=== PATIENT | male | born 1995 | race Caucasian/White ===

== ENCOUNTER 2024-05-20 15:54 | Inpatient (IN) | payer SELFPAY ==
[2024-05-20 16:40] VITALS: BP 141/91; PULSE 70; RESP 16; TEMP 37.4; O2SAT 98
[2024-05-20 16:42] VITALS: BMI 18.6
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
[2024-05-20] MEDS: nicotine 2 mg Gum BUCCAL (18:17)
[2024-05-20 19:42] VITALS: BP 131/92; PULSE 77; RESP 18; TEMP 36.7; O2SAT 100
[2024-05-20] MEDS: ibuprofen 600 mg Tablet PO (22:02)
[2024-05-20] MEDS: trazodone 50 mg Tablet PO (22:03)
--- NOTE | 2024-05-21 06:31 | PC.NURSE ---
pt refused vitals pts resp are 16
--- NOTE | 2024-05-21 10:26 | PC.NURSE ---
PT SPOKE TO THIS RN AT LENGTH ABOUT MANY THINGS REGARDING MY RIGHTS, MY CHRISTIAN, AND WHAT DO YOU BELIEVE. PT SPEECH IS EXCESSIVE, ANIMATED AND RAPID. PT MAKES MULTIPLE REQUESTS AND DEMANDS TO SEE HIS PHONE BUT THEN STATES HE HAS NO CONTACTS IN HIS PHONE AND WILL NEED TO RESEARCH THE NUMBERS ON FACEBOOK, TWITTER, [employer]. PT WAS INFORMED HE CAN NOT GET ON [employer] SITES BUT HE CAN GET ON HIS PHONE AND GET SOME PHONE NUMBERS. PT CONTINUES TO STATE HE HAS TO RESEARCH THE NUMBERS. PT DENIES SI/HI AND AVH AT THIS TIME. RATES ANXIETY 05/16 AND DEPRESSION 02/13. PT WAS OFFERED MEDICATION TO DECREASE ANXIETY BUT PT REFUSES AND GOES INTO A [facility] ON [address] AND I REALLY NEED TO GET THERE BUT I'M HERE BUT NOT REALLY HERE. PT PERSEVERATES TO ONE SUBJECT TO THE NEXT RAPIDLY AND CAN NOT STAY ON POINT.PT REFUSED TO EAT BREAKFAST AND REPORTS HE HAS NOT EATEN FOR FIVE DAYS AND HE IS GOING TO CONTINUE TO REFUSE ALL MEALS UNTIL THEY LET ME OUT OF HERE. PT WAS EDUCATED THAT IF THE DOES THAT HE WOULD BE SENT TO A MEDICAL FLOOR IF HIS HEALTH DECLINES AND ONCE HE RECOVERS WILL COME BACK TO THE PSYCHIATRIC UNIT. PT THEN STATED WELL THAT SUCKS THEN. I WAS HOPING THEY WOULD LET ME OUT OF HERE. ALL QUESTIONS ANSWERED AND SUPPORT VOICED.
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
[2024-05-21] MEDS: OLANZapine 5 mg ODT PO (12:53)
[2024-05-21 13:41] VITALS: BP 137/88; PULSE 80; RESP 16; TEMP 36.4; O2SAT 98
--- NOTE | 2024-05-21 15:19 | PC.NURSE ---
PT SPOKE WITH NURSE ABOUT C/O MATTED HAIR. PT STATED THAT HE HAD BEEN TRYING TO GET THE MATTES OUT OF HIS HAIR FOR DAYS. THIS NURSE OFFERED TO ASSIST PT IN DE-TANGLING HIS HAIR. PT ACCEPTED THIS OFFER. THIS NURSE ALERTED OTHER STAFF MEMBER TO MY WHERE ABOUT AND OBTAINED THE NECESSARY SUPPLIES. THIS NURSE SPENT ROUGHLY AN HOUR DE-TANGLING PT HAIR. PT HAIR WAD SEVERELY MATTED AND HAD DEBRIS OF UNKNOWN ORIGIN THROUGHOUT THE MATTES. DURING THIS PROCESS THIS NURSE CONVINCE PT TO ALLOW THIS NURSE TO UTILIZE A NO RINSE SHOWER CAP TO PROVIDE SOME PERSONAL HYGIENE PT IS CURRENTLY REFUSING A SHOWER. THIS NURSE APPLIED NO RINSE SHOWER CAP AND MASSAGE THE CAP THOROUGHLY INTO PT SCALP. AFTER THIS WAS DONE THIS NURSE BRUSHED THROUGH PT HAIR AGAIN TO ENSURE THERE WERE NO FURTHER KNOTS. PT APPEAR APPRECIATIVE AND RELIEVED AFTER PROCESS WAS COMPLETED. PT CURRENT NEEDS ARE MET AT THIS TIME.
[2024-05-21 20:13] VITALS: RESP 18
--- NOTE | 2024-05-21 20:13 | PC.NURSE ---
pt refused vitals resp are at 18
[2024-05-21 21:45] VITALS: BP 123/84; PULSE 79; RESP 18; TEMP 37.4; O2SAT 93
[2024-05-22 06:00] VITALS: RESP 16
--- NOTE | 2024-05-22 09:42 | PC.NURSE ---
PT IN DAY ROOM, CONTINUES TO RAMBLE EXCESSIVELY AND ANIMATED WITH SPEECH. DENIES SI/HI AND AVH AT THIS TIME. PT IS OBSERVED TO BE SOMATIC IN NATURE AND MAKES MULTIPLE COMPLAINTS ABOUT TAKING ANTI-DEPRESSANTS AND ANTI-PSYCHOTIC PT STATES I AM ALLERGIC TO ALL THAT STUFF, IT ALL MAKES ME NUMB AND THEN I HAVE EMOTIONS AND I NEVER HAVE THAT. PT WAS EDUCATED THAT NO WHERE IN HIS MEDICAL RECORD DO WE HAVE ANY INFORMATION STATING HE IS ALLERGIC TO ANYTHING. PT IS NOTED TO BE INTRUSIVE, IMPULSIVE AND RESISTIVE TO CARES AND TAKING MEDICATIONS. PT STATES THERE IS NOTHING WRONG WITH ME AND I DON'T NEED TO BE HERE. ALL QUESTIONS ANSWERED AND SUPPORT VOICED. DENIES PAIN.
--- NOTE | 2024-05-22 11:13 | PC.NURSE ---
Patient's father, Augusto phone number [phone].
--- NOTE | 2024-05-22 13:54 | W.PM.NPUPNS ---
Subjective NPU Subjective: Patient presented today reporting that he feels like he is doing fine and does not need medication. He continues to display limited insight and denying need for any interventions. He has no explanation for why situations have and are going the way they go. We discussed the treatment team's belief that medication is probably one of his only options to get his mental health under control. We discussed reviewing medications again in the morning in hopes that he will make changes. Mental Status Exam MSE Comments: This is an underweight white male, in hospital scrubs, with limited grooming, and intense eye contact looking fairly disheveled. No abnormal movements except for mild to moderate psychomotor agitation. Somewhat tense cooperative with exam and significant distress. Speech was slightly decreased rate and volume. Mood described as okay; affect slightly agitated. Thought process, linear. Thought content: patient denied any suicidal or homicidal ideation, there were no delusions reported but paranoia and some bizarre and possibly persecutory delusions noted, patient denied any auditory or visual hallucinations but appeared at times to be attending to internal stimuli. The patient denied experiencing suicidal ideation or thoughts of violence towards others. He reported feeling anxious but denied feelings of paranoia or hallucinations. He did express concerns about his declining memory and cognitive abilities, particularly when playing chess. The patient also reported experiencing flashes during the day but denied having nightmares or flashbacks. Attention, concentration, and memory appear limited but were not formally tested. He is alert and oriented to person. Insight and judgment and impulse control are impaired. Vitals/I&O/Wt Last Vital Signs Temp 99.3 F 05/21/24 21:45 Pulse 79 05/21/24 21:45 Resp 16 05/22/24 06:00 BP 123/84 05/21/24 21:45 Pulse Ox 93 05/21/24 21:45 O2 Del Method Room Air 05/20/24 16:42 Weight last 48 hrs Weight 52.163 kg Involuntary Hold Information 96 Hour Hold: 96 Hour Involuntary Admission: Yes 96 Hour Hold Ending Date: 05/26/24 96 Hour Hold Ending Time: 15:50 Attestations NPU Medical Necessity Statement*: Inpatient hospitalization is medically necessary and the clinically appropriate intervention, at this time. We will monitor medications and make changes as indicated. Likely length of stay is 7-10 days. Coding Level of Care Code Acute Code for [facility]
[2024-05-22 14:00] VITALS: BP 132/81; PULSE 79; RESP 16; TEMP 36.8; O2SAT 100
[2024-05-22] MEDS: nicotine 2 mg Gum BUCCAL (14:04)
--- NOTE | 2024-05-22 17:15 | PC.NURSE ---
PT CAME TO NURSES STATION HOLDING A SCREW AND GAVE IT TO THE RN. PT STATED COME HERE I GOTTA SHOW YOU THIS. WHEN BOTH RN'S ARRIVED TO ROOM THE MIRROR WAS OBSERVED TO BE HANGING PARTLY OFF THE WALL AND TOILET PAPER WAS OBSERVED ROLLED UP INTO THE SCREW HOLES THAT WERE MISSING (4 SCREWS FROM MIRROR HAD TOILET PAPER SHOVED IN SCREW HOLES TO DISGUISE THAT THERE WERE SCREWS MISSING ) PT THEN SHOWED RN THERE WAS A SMALL HOLE IN THE WALL ABOVE PT BED. PT STATED THAT'S WHERE I GOT THE SCREW FROM AND SOMEONE CAN HANG THEMSELVES WITH IT. THE SCREW WAS RANDOMLY PLACED IN THE MIDDLE OF THE WALL IT APPEARED AND HAD BEEN STRIPPED OUT. PT WAS ASSURED THAT THE SMALL SCREW COULD NOT SUPPORT AN ADULTS WEIGHT TO HANG THEMSELVES. PT LAUGHED AND MADE SURE TWO OTHER PTS WERE AWARE OF WHAT HE WAS DOING. ALL ROOMS ON [facility] WERE SEARCHED THROUGH BY STAFF TO FIND SCREWS. SECURITY WAS NOTIFIED BUT UNABLE TO STANDBY DUE TO ANOTHER EMERGENT NEED. THERE WERE NO SCREWS FOUND IN ANY ROOMS. TWO ENDS OF THE FLEXI-PENS WERE OBSERVED AND REMOVED. ALL FLEXI-PENS WERE REMOVED TO BEHIND THE NURSES STATION ON THE [facility]. PT THEN CAME AND GOT THIS RN A SECOND TIME AND TOOK ME TO HIS BATHROOM IN HIS ROOM AND SHOWED STAFF THAT THE HANDI-CAP BAR BY THE TOILET ALSO HAD A SCREW MISSING. THIS RN REMOVED THE ENTIRE MIRROR OFF THE WALL AND TOOK BEHIND NURSES STATION WITH ALL SCREWS AND SHEETROCK HANGERS. HVAC DESIGN MECHANICAL ENGINEER WAS NOTIFIED, SECURITY SYSTEMS MANAGER WAS ALSO NOTIFIED AND DR. BRANDT. PT WAS LAUGHING AND CARRYING ON WITH TWO OTHER PTS ON THE UNIT AND ASKING THE STAFF ARE YOU MAD ARE YOU MAD? THEN LAUGHING. PT WAS INFORMED NO ONE IS MAD BUT ENSURING EVERYONE'S SAFETY IS PRIORITY. SUPPORT VOICED. A FEW MINUTES LATER PT TOOK THIS RN INTO THE DAY ROOM AND SHOWED STAFF THAT THE DOORS ABOVE THE SINK WERE OPENED AND PART OF THE LOCK WAS MISSING ON ONE OF THE DOORS. HVAC DESIGN MECHANICAL ENGINEER WAS NOTIFIED AGAIN. THIS RN ATTEMPTED TO FIND EASON TO LOCK DOORS BUT UNABLE TO LOCATE. AFTER EXAMINATION OF LOCK IT WAS CONCLUDED THAT THE EASON WOULD NOT WORK ANYWAY DUE TO THE LOCK APPEARING TO BE MISSING. PT BEGAN POINTING OUT PLACES IN THE CABINET WHERE HE THOUGHT MORE SCREWS WERE MISSING. PT WAS ASSURED THERE WERE NO SCREWS THERE AND ALL IS WELL.
[2024-05-22] MEDS: OLANZapine 5 mg ODT PO (17:20)
--- NOTE | 2024-05-22 18:47 | PC.NURSE ---
Pt approached nursing station asking for the medication he took last night that helped stimulate his appetite, pt was given Zydis 5mg as ordered for increased anxiety.
[2024-05-22 21:29] VITALS: BP 144/83; PULSE 81; RESP 18; TEMP 37.3; O2SAT 98
[2024-05-23 06:00] VITALS: BP 96/61; PULSE 69; RESP 16; O2SAT 99
--- NOTE | 2024-05-23 09:30 | PC.NURSE ---
STANDING IN [place] SPEAKING WITH THIS RN. PT IS NOTED TO HAVE RAPID MOOD SWINGS THIS EARLY AM. SPEECH IS RAPID, EXCESSIVE AND ANIMATED. PT PERSERVERATES TO ONE SUBJECT TO THE NEXT RAPIDLY. PT WANTS TO KNOW HOW I GET OUT OF HERE, DO I JUST TAKE THE MEDS. PT WAS EDUCATED THAT HIM AND DR. BRANDT CAN DISCUSS MEDICATION OPTIONS AND TRY WHICH ONE THAT IS SUITABLE FOR HIS DIAGNOSIS. PT STATES I GUESS I WILL TAKE PROZAC SO JUST GIVE ME THAT. PT WAS AGIAN EDUCATED THAT THIS RN DOES NOT ORDER THE MEDICATIONS OR DECIDE WHAT HE WILL TAKE IT WILL BE DR. BRANDT AND HE NEEDS TO DISCUSS THAT WITH HIM. DENIES PAIN. DENIES SI/HIU AND AVH AT THIS TIME. RATES ANXIETY /10 AND DEPRESSION /10. DECLINES PRN ANXIETY MEDICATIONS AT THIS TIME PT STATES GOAL FOR THE DAY IS TO FIGURE OUT WHAT MEDS TO TAKE SO I CAN LEAVE. ALL QUESTIONS ANSWERED AND SUPPORT VOICED.
[2024-05-23 14:00] VITALS: BP 118/75; PULSE 71; RESP 17; TEMP 36.7; O2SAT 100
--- NOTE | 2024-05-23 14:17 | W.PM.NPUPNS ---
Subjective NPU Subjective: Patient presented today reporting that he is doing fine. He had another lengthy conversation as he denied that any symptoms that have been identified could be related to a psychotic illness. We discussed the current treatment plan which would involve filing for a 21-day hold given his continued symptoms and no improvement and no treatment. We discussed the risks, benefits and alternatives of Invega and he understood and agreed to proceed as is documented in his note. Mental Status Exam MSE Comments: This is an underweight white male, in hospital scrubs, with limited grooming, and intense eye contact looking fairly disheveled. No abnormal movements except for mild to moderate psychomotor agitation. Somewhat tense cooperative with exam and significant distress. Speech was slightly decreased rate and volume. Mood described as okay; affect slightly agitated. Thought process, linear. Thought content: patient denied any suicidal or homicidal ideation, there were no delusions reported but paranoia and some bizarre and possibly persecutory delusions noted, patient denied any auditory or visual hallucinations but appeared at times to be attending to internal stimuli. The patient denied experiencing suicidal ideation or thoughts of violence towards others. He reported feeling anxious but denied feelings of paranoia or hallucinations. He did express concerns about his declining memory and cognitive abilities, particularly when playing chess. The patient also reported experiencing flashes during the day but denied having nightmares or flashbacks. Attention, concentration, and memory appear limited but were not formally tested. He is alert and oriented to person. Insight and judgment and impulse control are impaired. Vitals/I&O/Wt Last Vital Signs Temp 99.1 F 05/22/24 21:29 Pulse 69 05/23/24 06:00 Resp 16 05/23/24 06:00 BP 96/61 05/23/24 06:00 Pulse Ox 99 05/23/24 06:00 O2 Del Method Room Air 05/23/24 06:00 A&P Assessment and plan (1) History of schizoaffective disorder: (2) Psychosis: (3) Cannabis use disorder: Plan This is a 28-year-old white male unknown to [facility] inpatient or outpatient who presents with kyara psychosis apparently off medication and a poor historian.The patient appears to have a complex psychiatric history with dissatisfaction towards previous treatments. He has reported an increase in anxiety and tobacco use, as well as concerns about declining cognitive abilities. There is also a history of substance use including cannabis and methamphetamines. 1.? Initiate Invega 6 mg p.o. daily. 2.? Encourage individual, group, and milieu therapy. 3.? Continue q-15 minute checks for safety. 4.? Encourage sober living treatment, after discharge, at the highest level of care, to which he is willing to commit. 5. Get collateral information. 6. Evaluate for safety given 96-hour hold. Involuntary Hold Information 96 Hour Hold: 96 Hour Involuntary Admission: Yes 96 Hour Hold Ending Date: 05/26/24 96 Hour Hold Ending Time: 15:50 Attestations NPU Medical Necessity Statement*: Inpatient hospitalization is medically necessary and the clinically appropriate intervention, at this time. We will monitor medications and make changes as indicated. Likely length of stay is 7-10 days. Coding Level of Care Code Acute Code for g Fwd Diagnoses History of schizoaffective disorder Z86.59 Psychosis F29 Cannabis use disorder F12.90
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
[2024-05-23 21:40] VITALS: BP 154/91; PULSE 72; RESP 18; TEMP 36.6; O2SAT 99
[2024-05-24 06:00] VITALS: BP 112/68; PULSE 68; RESP 16; TEMP 36.7; O2SAT 96
--- NOTE | 2024-05-24 13:51 | P.NPUPN_ITS ---
Subjective NPU Subjective: Patient presented today reporting that he is feeling okay. After previously agreeing to taking the Invega he refused the Invega and agreed to take Abilify. We discussed the risks, benefits and alternatives to Abilify and he understood and agreed to proceed as is documented in this note. Continue to focus on the need for discharge and desire for discharge and expressed confusion as to why he was here. We discussed some of the clearly delusional content that he presents with he double down on some of those points as realities. Mental Status Exam MSE Comments: This is an underweight white male, in hospital scrubs, with limited grooming, and less intense eye contact looking less disheveled. No abnormal movements except for mild psychomotor agitation. Somewhat tense cooperative with exam and significant distress. Speech was slightly decreased rate and volume. Mood described as okay; affect slightly agitated. Thought process, linear. Thought content: patient denied any suicidal or homicidal ideation, there were no delusions reported but paranoia and some bizarre and possibly persecutory delusions noted, patient denied any auditory or visual hallucinations but appeared at times to be attending to internal stimuli. The patient denied experiencing suicidal ideation or thoughts of violence towards others. He reported feeling anxious but denied feelings of paranoia or hallucinations. He did express concerns about his declining memory and cognitive abilities, particularly when playing chess. The patient also reported experiencing flashes during the day but denied having nightmares or flashbacks. Attention, concentration, and memory appear limited but were not formally tested. He is alert and oriented to person. Insight and judgment and impulse control are impaired. Vitals/I&O/Wt Last Vital Signs Temp 98.1 F 05/24/24 06:00 Pulse 68 05/24/24 06:00 Resp 16 05/24/24 06:00 BP 112/68 05/24/24 06:00 Pulse Ox 96 05/24/24 06:00 O2 Del Method Room Air 05/24/24 06:00 Weight last 48 hrs Weight 56.812 kg A&P Assessment and plan (1) History of schizoaffective disorder: (2) Psychosis: (3) Cannabis use disorder: Plan This is a 28-year-old white male unknown to [facility] inpatient or outpatient who presents with kyara psychosis apparently off medication and a poor historian.The patient appears to have a complex psychiatric history with dissatisfaction towards previous treatments. He has reported an increase in anxiety and tobacco use, as well as concerns about declining cognitive abilities. There is also a history of substance use including cannabis and methamphetamines. 1.? Initiated Abilify 10 mg p.o. daily and will titrate to effect. 2.? Encourage individual, group, and milieu therapy. 3.? Continue q-15 minute checks for safety. 4.? Encourage sober living treatment, after discharge, at the highest level of care, to which he is willing to commit. 5. Get collateral information. 6. Evaluate for safety given 96-hour hold. Involuntary Hold Information 96 Hour Hold: 96 Hour Involuntary Admission: Yes 96 Hour Hold Ending Date: 05/26/24 96 Hour Hold Ending Time: 15:50 Attestations NPU Medical Necessity Statement*: Inpatient hospitalization is medically necessary and the clinically appropriate intervention, at this time. We will monitor medications and make changes as indicated. Likely length of stay is 7-10 days. Coding Level of Care Code Acute Code for [facility] Fwd Diagnoses History of schizoaffective disorder Z86.59 Psychosis F29 Cannabis use disorder F12.90
[2024-05-24] MEDS: ARIPiprazole 10 mg Tablet PO (13:54)
[2024-05-24 14:00] VITALS: BP 122/79; PULSE 73; RESP 16; O2SAT 99
[2024-05-24] MEDS: acetaminophen 325 mg Tablet 650 MG PO (14:13)
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
[2024-05-24 21:39] VITALS: BP 143/93; PULSE 83; RESP 18; TEMP 36.2; O2SAT 95
[2024-05-25 06:00] VITALS: BP 125/80; PULSE 102; RESP 17; O2SAT 97
[2024-05-25] MEDS: nicotine 2 mg Gum BUCCAL (07:48)
[2024-05-25] MEDS: ARIPiprazole 10 mg Tablet PO (08:42)
[2024-05-25] MEDS: ibuprofen 600 mg Tablet PO (08:54)
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
[2024-05-25] MEDS: calcium carbonate 500 mg Chew Tablet 1000 MG PO ×3 (10:38→18:46)
[2024-05-25 14:00] VITALS: BP 134/80; PULSE 95; RESP 17; TEMP 36.8; O2SAT 97
[2024-05-25] MEDS: acetaminophen 325 mg Tablet 650 MG PO (14:00)
[2024-05-25] MEDS: pantoprazole DR 40 mg Tablet PO (16:24)
[2024-05-25 19:43] VITALS: BP 130/89; PULSE 89; RESP 18; TEMP 37.2; O2SAT 99
--- NOTE | 2024-05-25 20:40 | W.PM.NPUPNS ---
Subjective NPU Subjective: Patient presented today reporting that he is doing okay. We discussed the likelihood of a 21-day hold being filed. He continues to express having no understanding of why we think he might be psychotic. He continues to try to negotiate for a quicker release but wants to avoid medication. Mental Status Exam MSE Comments: This is an underweight white male, in hospital scrubs, with limited grooming, and less intense eye contact looking less disheveled. No abnormal movements except for mild psychomotor agitation. Somewhat tense cooperative with exam and significant distress. Speech was slightly decreased rate and volume. Mood described as okay; affect slightly agitated. Thought process, linear. Thought content: patient denied any suicidal or homicidal ideation, there were no delusions reported but paranoia and some bizarre and possibly persecutory delusions noted, patient denied any auditory or visual hallucinations but appeared at times to be attending to internal stimuli. The patient denied experiencing suicidal ideation or thoughts of violence towards others. He reported feeling anxious but denied feelings of paranoia or hallucinations. He did express concerns about his declining memory and cognitive abilities, particularly when playing chess. The patient also reported experiencing flashes during the day but denied having nightmares or flashbacks. Attention, concentration, and memory appear limited but were not formally tested. He is alert and oriented to person. Insight and judgment and impulse control are impaired. Vitals/I&O/Wt Last Vital Signs Temp 98.9 F 05/25/24 19:43 Pulse 89 05/25/24 19:43 Resp 18 05/25/24 19:43 BP 130/89 05/25/24 19:43 Pulse Ox 99 05/25/24 19:43 O2 Del Method Room Air 05/25/24 06:00 Weight last 48 hrs Weight 56.812 kg A&P Assessment and plan (1) History of schizoaffective disorder: (2) Psychosis: (3) Cannabis use disorder: Plan This is a 28-year-old white male unknown to [facility] inpatient or outpatient who presents with kyara psychosis apparently off medication and a poor historian.The patient appears to have a complex psychiatric history with dissatisfaction towards previous treatments. He has reported an increase in anxiety and tobacco use, as well as concerns about declining cognitive abilities. There is also a history of substance use including cannabis and methamphetamines. 1.? Initiated Abilify 10 mg p.o. daily and will titrate to effect. Possibly increase to 15 mg tomorrow. 2.? Encourage individual, group, and milieu therapy. 3.? Continue q-15 minute checks for safety. 4.? Encourage sober living treatment, after discharge, at the highest level of care, to which he is willing to commit. 5. Get collateral information. 6. Evaluate for safety given 96-hour hold. Involuntary Hold Information 96 Hour Hold: 96 Hour Involuntary Admission: Yes 96 Hour Hold Ending Date: 05/26/24 96 Hour Hold Ending Time: 15:50 Attestations NPU Medical Necessity Statement*: Inpatient hospitalization is medically necessary and the clinically appropriate intervention, at this time. We will monitor medications and make changes as indicated. Likely length of stay is 6-9 days. Coding Level of Care Code Acute Code for Chg Fwd Diagnoses History of schizoaffective disorder Z86.59 Psychosis F29 Cannabis use disorder F12.90
[2024-05-26 06:00] VITALS: BP 119/82; PULSE 86; RESP 18; TEMP 36.7; O2SAT 98
[2024-05-26] MEDS: acetaminophen 325 mg Tablet 650 MG PO (07:15)
[2024-05-26] MEDS: pantoprazole DR 40 mg Tablet PO (07:40)
[2024-05-26] MEDS: ARIPiprazole 10 mg Tablet PO (08:34)
[2024-05-26] MEDS: calcium carbonate 500 mg Chew Tablet 1000 MG PO ×3 (09:49→20:31)
[2024-05-26 14:00] VITALS: BP 110/72; PULSE 115; RESP 20; TEMP 36.9; O2SAT 98
--- NOTE | 2024-05-26 15:56 | PC.NURSE ---
Patient was served papers that he was to have court for a 21 day hold tomorrow. Patient was calm and cooperative. He did ask staff what he should do in order to make his stay as short as possible here. He was told if he remained compliant with medication and worked towards bettering his mental health that it would be in his best interests. Patient agreed and was very friendly towards staff.
[2024-05-26 20:05] VITALS: BP 119/74; PULSE 90; RESP 18; TEMP 36.8; O2SAT 100
[2024-05-26] MEDS: trazodone 50 mg Tablet PO (20:24)
--- NOTE | 2024-05-26 21:43 | W.PM.NPUPNS ---
Subjective NPU Subjective: Patient presented today reporting that he is doing okay. We discussed the process of him being discharged and the importance of him maintaining the medication as prescribed. He continued to endorse delusional content only discussed the 21-day hold process. He agreed he would continue to take the medication. He denied any side effects to the medication at this point. We discussed the risks, benefits and alternatives of increasing the Abilify to 15 mg and he understood and agreed to proceed as is documented in this note. Mental Status Exam MSE Comments: This is an underweight white male, in hospital scrubs, with limited grooming, and less intense eye contact looking less disheveled. No abnormal movements except for mild psychomotor agitation. Somewhat tense cooperative with exam and significant distress. Speech was slightly decreased rate and volume. Mood described as okay; affect slightly agitated. Thought process, linear. Thought content: patient denied any suicidal or homicidal ideation, there were no delusions reported but paranoia and some bizarre and possibly persecutory delusions noted, patient denied any auditory or visual hallucinations but appeared at times to be attending to internal stimuli. The patient denied experiencing suicidal ideation or thoughts of violence towards others. He reported feeling anxious but denied feelings of paranoia or hallucinations. He did express concerns about his declining memory and cognitive abilities, particularly when playing chess. The patient also reported experiencing flashes during the day but denied having nightmares or flashbacks. Attention, concentration, and memory appear limited but were not formally tested. He is alert and oriented to person. Insight and judgment and impulse control are impaired. Vitals/I&O/Wt Last Vital Signs Temp 98.2 F 05/26/24 20:05 Pulse 90 05/26/24 20:05 Resp 18 05/26/24 20:05 BP 119/74 05/26/24 20:05 Pulse Ox 100 05/26/24 20:05 O2 Del Method Room Air 05/25/24 06:00 A&P Assessment and plan (1) History of schizoaffective disorder: (2) Psychosis: (3) Cannabis use disorder: Plan This is a 28-year-old white male unknown to [facility] inpatient or outpatient who presents with kyara psychosis apparently off medication and a poor historian.The patient appears to have a complex psychiatric history with dissatisfaction towards previous treatments. He has reported an increase in anxiety and tobacco use, as well as concerns about declining cognitive abilities. There is also a history of substance use including cannabis and methamphetamines. 1.? Initiated Abilify 10 mg p.o. daily and will titrate to effect. Increase to 15 mg tomorrow. 2.? Encourage individual, group, and milieu therapy. 3.? Continue q-15 minute checks for safety. 4.? Encourage sober living treatment, after discharge, at the highest level of care, to which he is willing to commit. 5. Get collateral information. 6. Evaluate for safety given 96-hour hold. Involuntary Hold Information 96 Hour Hold: 96 Hour Involuntary Admission: Yes 96 Hour Hold Ending Date: 05/26/24 96 Hour Hold Ending Time: 15:50 Attestations NPU Medical Necessity Statement*: Inpatient hospitalization is medically necessary and the clinically appropriate intervention, at this time. We will monitor medications and make changes as indicated. Likely length of stay is 6-9 days. Coding Level of Care Code Acute Code for g Fwd Diagnoses History of schizoaffective disorder Z86.59 Psychosis F29 Cannabis use disorder F12.90
[2024-05-27 06:00] VITALS: BP 124/73; PULSE 98; RESP 18; TEMP 36.8; O2SAT 99
[2024-05-27] MEDS: ARIPiprazole 30 mg Tablet 15 MG PO (09:21)
[2024-05-27] MEDS: pantoprazole DR 40 mg Tablet PO (09:21)
[2024-05-27 14:00] VITALS: BP 131/91; PULSE 81; RESP 16; TEMP 36.8; O2SAT 99
--- NOTE | 2024-05-27 15:19 | PC.NURSE ---
Addendum entered by Sherry Garay RN 05/27/24 15:44: ERROR ON TIME PT RETURN TIME WAS ACTUALLY 1518. Original Note: PT RETURNED TO FLOOR FROM COURT @1310.
--- NOTE | 2024-05-27 16:16 | W.PM.NPUPNS ---
Subjective NPU Subjective: Patient presented today reporting that he is going to go to the court. He reports an ongoing plan to take his medication but was starting to focus on may be doing it from home. We talked about not knowing whether this is the right medication yet so discharging him on the long-acting injectable would be premature. He denied any side effects to the medication. Mental Status Exam MSE Comments: This is an underweight white male, in hospital scrubs, with limited grooming, and less intense eye contact looking less disheveled. No abnormal movements except for mild psychomotor agitation. Somewhat tense cooperative with exam and significant distress. Speech was slightly decreased rate and volume. Mood described as okay; affect slightly agitated. Thought process, linear. Thought content: patient denied any suicidal or homicidal ideation, there were no delusions reported but paranoia and some bizarre and possibly persecutory delusions noted, patient denied any auditory or visual hallucinations but appeared at times to be attending to internal stimuli. The patient denied experiencing suicidal ideation or thoughts of violence towards others. He reported feeling anxious but denied feelings of paranoia or hallucinations. He did express concerns about his declining memory and cognitive abilities, particularly when playing chess. The patient also reported experiencing flashes during the day but denied having nightmares or flashbacks. Attention, concentration, and memory appear limited but were not formally tested. He is alert and oriented to person. Insight and judgment and impulse control are impaired. Vitals/I&O/Wt Last Vital Signs Temp 98.3 F 05/27/24 14:00 Pulse 81 05/27/24 14:00 Resp 16 05/27/24 14:00 BP 131/91 05/27/24 14:00 Pulse Ox 99 05/27/24 14:00 O2 Del Method Room Air 05/25/24 06:00 A&P Assessment and plan (1) History of schizoaffective disorder: (2) Psychosis: (3) Cannabis use disorder: Plan This is a 28-year-old white male unknown to [facility] inpatient or outpatient who presents with kyara psychosis apparently off medication and a poor historian.The patient appears to have a complex psychiatric history with dissatisfaction towards previous treatments. He has reported an increase in anxiety and tobacco use, as well as concerns about declining cognitive abilities. There is also a history of substance use including cannabis and methamphetamines. 1.? Initiated Abilify 10 mg p.o. daily and will titrate to effect. Increased to 15 mg. 2.? Encourage individual, group, and milieu therapy. 3.? Continue q-15 minute checks for safety. 4.? Encourage sober living treatment, after discharge, at the highest level of care, to which he is willing to commit. 5. Get collateral information. 6. Evaluate for safety given 96-hour hold. 21-day hold hearing today. Involuntary Hold Information 96 Hour Hold: 96 Hour Involuntary Admission: Yes 96 Hour Hold Ending Date: 05/26/24 96 Hour Hold Ending Time: 15:50 Attestations NPU Medical Necessity Statement*: Inpatient hospitalization is medically necessary and the clinically appropriate intervention, at this time. We will monitor medications and make changes as indicated. Likely length of stay is 6-9 days. Coding Level of Care Code Acute Code for Chg Fwd Diagnoses History of schizoaffective disorder Z86.59 Psychosis F29 Cannabis use disorder F12.90
[2024-05-27 20:16] VITALS: BP 130/90; PULSE 80; RESP 18; TEMP 36.8; O2SAT 99
[2024-05-28 06:00] VITALS: BP 120/60; PULSE 82; RESP 16; TEMP 36.8; O2SAT 98
[2024-05-28] MEDS: ARIPiprazole 30 mg Tablet 15 MG PO (09:02)
[2024-05-28] MEDS: pantoprazole DR 40 mg Tablet PO (09:02)
[2024-05-28] MEDS: benztropine 1 mg Tablet PO (09:02)
[2024-05-28] MEDS: acetaminophen 325 mg Tablet 650 MG PO ×2 (10:36→19:24)
[2024-05-28] MEDS: OLANZapine 5 mg ODT PO (10:52)
[2024-05-28 13:40] VITALS: BP 127/72; PULSE 96; RESP 16; TEMP 37.1; O2SAT 100
--- NOTE | 2024-05-28 14:19 | P.NPUPN_ITS ---
Subjective NPU Subjective: Patient presented today reporting that he is doing okay overall. This was the first day that he did not make a major push for discharge. He is taking his medication without incident. We continued to discuss the possibility of a long- acting injectable. He denied any side effects to the medications or any issues with the increase. Mental Status Exam MSE Comments: This is an underweight white male, in hospital scrubs, with limited grooming, and less intense eye contact looking less disheveled. No abnormal movements except for mild psychomotor agitation. Somewhat tense cooperative with exam in significant distress. Speech was slightly decreased rate and volume. Mood described as okay; affect slightly agitated. Thought process, linear. Thought content: patient denied any suicidal or homicidal ideation, there were no delusions reported but paranoia and some bizarre and possibly persecutory delusions noted, patient denied any auditory or visual hallucinations but appeared at times to be attending to internal stimuli. The patient denied experiencing suicidal ideation or thoughts of violence towards others. He reported feeling anxious but denied feelings of paranoia or hallucinations. He did express concerns about his declining memory and cognitive abilities, particularly when playing chess. The patient also reported experiencing flashes during the day but denied having nightmares or flashbacks. Attention, concentration, and memory appear limited but were not formally tested. He is alert and oriented to person. Insight and judgment and impulse control are impaired. Vitals/I&O/Wt Last Vital Signs Temp 98.7 F 05/28/24 13:40 Pulse 96 05/28/24 13:40 Resp 16 05/28/24 13:40 BP 127/72 05/28/24 13:40 Pulse Ox 100 05/28/24 13:40 O2 Del Method Room Air 05/28/24 13:40 A&P Assessment and plan (1) History of schizoaffective disorder: (2) Psychosis: (3) Cannabis use disorder: Plan This is a 28-year-old white male unknown to [facility] inpatient or outpatient who presents with kyara psychosis apparently off medication and a poor historian.The patient appears to have a complex psychiatric history with dissatisfaction towards previous treatments. He has reported an increase in anxiety and tobacco use, as well as concerns about declining cognitive abilities. There is also a history of substance use including cannabis and methamphetamines. 1.? Initiated Abilify 10 mg p.o. daily and will titrate to effect. Increased to 15 mg. 2.? Encourage individual, group, and milieu therapy. 3.? Continue q-15 minute checks for safety. 4.? Encourage sober living treatment, after discharge, at the highest level of care, to which he is willing to commit. 5. Get collateral information. 6. Evaluate for safety given 96-hour hold. 21-day hold hearing today. Involuntary Hold Information 96 Hour Hold: 96 Hour Involuntary Admission: Yes 96 Hour Hold Ending Date: 05/26/24 96 Hour Hold Ending Time: 15:50 Attestations NPU Medical Necessity Statement*: Inpatient hospitalization is medically necessary and the clinically appropriate intervention, at this time. We will monitor medications and make changes as ind icated. Likely length of stay is 5-8 days. Coding Level of Care Code Acute Code for Chg Fwd Diagnoses History of schizoaffective disorder Z86.59 Psychosis F29 Cannabis use disorder F12.90
[2024-05-28] MEDS: trazodone 50 mg Tablet PO (19:24)
[2024-05-28] MEDS: hyDROXYzine 25 mg Capsule 50 MG PO (19:24)
[2024-05-28 19:47] VITALS: BP 111/71; PULSE 112; RESP 16; TEMP 38.4; O2SAT 97
--- NOTE | 2024-05-28 19:50 | PC.NURSE ---
PT GIVEN TYLENOL FOR TEMP OF 101.1
[2024-05-28 20:26] VITALS: TEMP 37.9
--- NOTE | 2024-05-28 20:30 | PC.NURSE ---
TEMP 100.3
[2024-05-29 06:00] VITALS: BP 101/62; PULSE 108; RESP 18; TEMP 38.1; O2SAT 97
--- NOTE | 2024-05-29 06:00 | PC.NURSE ---
TYLENOL GIVEN FOR TEMP 100.5
[2024-05-29] MEDS: acetaminophen 325 mg Tablet 650 MG PO (06:23)
[2024-05-29 07:44] VITALS: TEMP 37.6
[2024-05-29 08:56] LABS: Basophils % 0.5 %; Eosinophils # 0.1 10^3/uL (0.0-0.8); Eosinophils % 2.2 %; Hematocrit 42.6 % (37-53); Lymphocytes # 0.7 10^3/uL (0.8-4.8); Lymphocytes % 11.6 %; Mean Corpuscular HGB Conc 32.2 g/dL (30-55); Mean Corpuscular Hemoglobin 30.3 pg (27-33); Mean Corpuscular Volume 94.2 fl (82-101); Mean Platelet Volume 10.2 fL (7.4-10.4); Monocytes # 0.9 10^3/uL (0.2-0.9); Monocytes % 14.1 %; Neutrophils # 4.49 10^3/uL (1.8-7.7); Neutrophils % 71.3 %; Nucleated Red Blood Cells % 0 %; Platelet Count 242 10^3/cmm (157-399); Red Blood Count 4.52 10^6/uL (3.85-5.65); Red Cell Distribution Width 13.3 % (12.1-15.1)
[2024-05-29] MEDS: OLANZapine 5 mg ODT PO (09:13)
[2024-05-29] MEDS: ARIPiprazole 30 mg Tablet 15 MG PO (09:13)
[2024-05-29] MEDS: benztropine 1 mg Tablet PO (09:13)
[2024-05-29 10:28] LABS: Influenza A by IFA Negative (Negative); Influenza B by IFA Negative (Negative)
[2024-05-29 11:43] LABS: Rapid Strep A Test Negative (Negative)
[2024-05-29 12:01] LABS: Adenovirus Not Detected (NOT DETECT); Chlamydia Pneumoniae Not Detected (NOT DETECT); Coronavirus 229E,HKU1,NL63,OC4 Not Detected (NOT DETECT); Human Metapneumovirus Not Detected (NOT DETECT); Human Rhinovirus/Enterovirus Not Detected (NOT DETECT); Influenza A Not Detected (NOT DETECT); Influenza A H1 Not Detected (NOT DETECT); Influenza A H1-2009 Not Detected (NOT DETECT); Influenza A H3 Not Detected (NOT DETECT); Influenza B Not Detected (NOT DETECT); Mycoplasma Pneumoniae Not Detected (NOT DETECT); Parainfluenza Virus Type 1 Not Detected (NOT DETECT); Parainfluenza Virus Type 2 Not Detected (NOT DETECT); Parainfluenza Virus Type 3 Not Detected (NOT DETECT); Parainfluenza Virus Type 4 Not Detected (NOT DETECT); Respiratory Syncytial Virus A Not Detected (NOT DETECT); Respiratory Syncytial Virus B Not Detected (NOT DETECT)
[2024-05-29 12:10] LABS: Charge for UA Resulting for Rev
[2024-05-29 12:21] LABS: Bilirubin Urine Negative (Negative); Blood Urine Negative (Negative); Glucose Urine UA Negative (Normal); Ketones Urine Negative (Negative); Leukocyte Esterase Urine Negative (Negative); Nitrate Urine Negative (Negative); Protein Urine Negative (Negative); Urine Appearance Clear (CLEAR); Urine Color Yellow (Yellow); pH Urine 5.5 (5-7)
[2024-05-29 12:23] LABS: SARS-COV-2 Detected (NOT DETECT)
[2024-05-29 12:24] LABS: Bacteria Urine None Seen /hpf; Hyaline Casts Urine 0-4 /lpf; RBC Urine 0-2 /hpf (0-2); Squamous Epithelial Cell Urine 0-5 /hpf (0-5); WBC Urine 0-5 /hpf (0-5)
--- NOTE | 2024-05-29 12:54 | P.CONIM_ITS ---
Providers/Reason For Consult 2 Consulting Physician/Specialty*: Dr. Noel/internal medicine Reason for Consult*: COVID-19 Attending Physician: Dada Bowman MD History of Present Illness History of Present Illness Augusto Dick is a 28 year old male with past medical history of asthma on inhaler, who was admitted to Neuropsych Unit for acute psychosis and is on 21- day hold was transferred to [facility] floor today because he tested positive for COVID-19. Patient was tested for COVID-19 as he developed fever over last 24-hour along with complaints of myalgia and abdominal discomfort. Patient himself denies any nausea, vomiting, difficulty in breathing, cough. On examination is seen comfortably in the bed with sitter at bedside. Review of Systems 2 General: Reports: 10 or more systems reviewed and unremarkable except in HPI and below Const: Denies: fever(s), chills, body aches, change in appetite, change in weight, malaise, night sweats, diaphoresis, change in sleep pattern, daytime sleepiness or snoring Eyes: Denies: change in vision, blurry vision, photophobia, eye discomfort or eye discharge ENMT: Denies: throat pain, enlarged tonsils, hoarseness, mouth pain, oral sores, dry mouth, tinnitus, nasal congestion or post nasal drip Card: Denies: chest pain, palpitations, irregular heart rhythm, edema, swelling of feet/ankles, lightheadedness, syncope, pre-syncope, dyspnea on exertion, orthopnea, leg pain with exertion or acrocyanosis Resp: Denies: dyspnea, productive cough, non-productive cough, wheezing, stridor, pain on inspiration, change in phlegm color, hemoptysis or chest congestion GI: Denies: abdominal pain, nausea, vomiting, hematemesis, coffee ground emesis, dysphagia, heartburn, diarrhea, constipation, bloating, GI cramping, change in bowel habits, pain on defecation, hematochezia or melena : Denies: flank pain, difficulty urinating, dysuria, urinary frequency, urinary urgency, urinary hesitancy, urinary dribbling, difficulty starting urination, change in urine stream, nocturia or hematuria Musc: Denies: neck pain, back pain, extremity pain, joint pain, joint swelling, joint redness, joint stiffness or limited range of motion Neuro: Denies: headache(s), numbness in extremities, weakness in extremities, sensory changes, lack of coordination, difficulty walking, frequent falls, dizziness, vertigo, confusion, Slurred speech present, difficulty communicating thoughts or seizure-like activity Psych: Denies: anxiety, depression, mood swings, panic attacks, hopelessness or irritability Endo: Denies: polyuria, polydipsia, tired all the time, cold intolerance, excessive sweating, flushing or heat intolerance Lele/Lymph: Denies: easy bruising or easy bleeding All/Imm: Denies: tongue swelling, facial swelling or acute wheezing Medications/Allergies Home Medications Medication Instructions Recorded Confirmed Last Taken Type No Known Home Medications 05/20/24 05/20/24 Unknown History Allergies Allergy/AdvReac Type Severity Reaction Status Date / Time No Known Allergies Allergy Verified 05/20/24 18:26 Current Medications Generic Name Dose Route Start Last Admin Trade Name Freq PRN Reason Stop Dose Admin Acetaminophen 650 mg 05/20/24 16:40 05/29/24 06:23 Acetaminophen 325 Mg Tablet PO 650 mg Q4H PRN Administration MILD PAIN Aripiprazole 15 mg 05/27/24 09:00 05/29/24 09:13 Aripiprazole 30 Mg Tablet PO 15 mg DAILY TYLER Administration Benztropine Mesylate 1 mg 05/20/24 16:40 05/29/24 09:13 Benztropine 1 Mg Tablet PO 1 mg BID PRN Administration Mild Extrapyramidal symptoms Calcium Carbonate 1,000 mg 05/25/24 09:45 05/26/24 20:31 Calcium Carbonate 500 Mg Chew Tablet PO 1,000 mg Q4H PRN Administration HEARTBURN Hydroxyzine Pamoate 50 mg 05/20/24 16:40 05/28/24 19:24 Hydroxyzine 25 Mg Capsule PO 50 mg Q6H PRN Administration ANXIETY Ibuprofen 600 mg 05/20/24 16:40 05/25/24 08:54 Ibuprofen 600 Mg Tablet PO 600 mg Q6H PRN Administration MODERATE PAIN Nicotine Polacrilex 2 mg 05/20/24 16:40 05/25/24 07:48 Nicotine 2 Mg Gum BUCCAL 2 mg Q2H PRN Administration NICOTINE WITHDRAWAL Olanzapine 5 mg 05/20/24 16:40 05/29/24 09:13 Olanzapine 5 Mg Odt PO 5 mg Q4H PRN Administration Agitation/Psychosis Pantoprazole Sodium 40 mg 05/25/24 14:38 05/29/24 10:[address] 40 Mg Tablet PO Not Given DAILY TYLER Trazodone HCl 50 mg 05/20/24 16:40 05/28/24 19:24 Trazodone 50 Mg Tablet PO 50 mg BEDTIME PRN Administration SLEEP PFSH Acute 2 PFSH: Medical History (Updated 05/29/24 @ 15:14 by Timmy Noel MD) Asthma Vitals/I&O/Wt Last Vital Signs Temp 99.6 F 05/29/24 07:44 Pulse 108 H 05/29/24 06:00 Resp 18 05/29/24 06:00 BP 101/62 05/29/24 06:00 Pulse Ox 97 05/29/24 06:00 O2 Del Method Room Air 05/29/24 06:00 Physical Exam 2 Narrative: General: No acute distress, AO x3, thin build HEENT: PERRLA, pupils bilaterally equal and reactive Chest: Normal vesicular breath sounds, no added sounds, equal good air entry bilaterally CVS: S1-S2 regular, no murmurs, no tachycardia, no gallops, no rubs Abdomen: Soft, nontender, no organomegaly, bowel sounds present Neuro: No focal deficits, no facial deformity, AO x3, power 5/5 in all limbs Data 05/29/24 08:47 05/29/24 08:47 A&P Assessment and plan (1) COVID-19: Hypoxia secondary to COVID-19 pneumonia: Mild Oxygen supplementation keeping saturation over 88%. Dexamethasone 6 mg oral daily. Remdesivir to finish a 3 to 5-day course depending on clinical picture. DuoNeb every 6 hour as needed. He does have history of asthma in past. Pulmonary toilet with incentive spirometry flutter valve. We will monitor inflammatory markers including CRP every 48 hours. Check D-dimer. If elevated will do CT otherwise chest x-ray for further evaluation of possible pneumonia. Will plan for anticoagulation as per the results. Check sputum culture, MRSA swab, procalcitonin, urine Legionella, bacterial antigen, blood culture. Procalcitonin negative. Low suspicion of bacterial infection for now. (2) Asthma: No exacerbation currently. Will continue to monitor. (3) History of schizoaffective disorder: As per Neuropsych Unit. Patient is on 21-day hold. (4) Psychosis: Plan Please transfer patient to [facility] floor for isolation. Sitter at bedside. Patient will need isolation for overall 10 days from positive COVID-19 test. Continue with dexamethasone for 10 days. Remdesivir for overall 3-day course if patient remains clinically stable on room air. DuoNeb as needed. Monitor CBC, CMP daily and CRP every 48 hours. Consult Attestations 2 Medical Necessity Statement: Requires further hospitalization as patient is a 21-day-old by neuropsych team, mild COVID-19 Diagnoses COVID-19 U07.1 Asthma J45.909 History of schizoaffective disorder Z86.59 Psychosis F29
[2024-05-29 13:19] LABS: Estmated Average Glucose 111; Hemoglobin A1C 5.5 % (4.0-6.0)
[2024-05-29 13:37] LABS: Procalcitonin 0.07 ng/mL (0-0.5); Thyroid Stimulating Hormone 0.41 uIU/mL (0.27-4.20); Vitamin B12 528 pg/mL (232-1245)
[2024-05-29 13:48] LABS: Alanine Aminotransferase 15 U/L (0-41); Albumin Level 4.5 g/dL (3.5-5.2); Alkaline Phosphatase 59 U/L (40-130); Aspartate Amino Transferase 13 U/L (0-40); Blood Urea Nitrogen 15 mg/dL (6-20); Calcium 9.3 mg/dL (8.5-10.5); Carbon Dioxide 24 mmol/L (22-29); Chloride 100 mmol/L (98-107); Creatinine Clr Calc Pharmacy 77.6681; Globulin 2.7 g/dL (1.3-4.6); Glomerular Filtration Rate 71.1 mL/min (90-130); Glucose 109 mg/dL (65-115); Iron 27 ug/dL (59-158); Osmolality Calculated 285 mOsm/kg (285-295); Percent Saturation 8.2 % (20-50); Sodium 137 mmol/L (136-145); Total Bilirubin 0.2 mg/dL (0.15-1.2); Total Iron Binding Capacity 326 mcg/dl; Total Protein 7.2 g/dL (6.6-8.7); Unsaturated Iron Binding 299 ug/dL (112-347)
--- NOTE | 2024-05-29 14:30 | XR_ITS ---
WS: [id number] PORTABLE CHEST HISTORY: covid COMPARISON: None available. Lungs are clear and well expanded. No pleural effusion or pneumothorax. Cardiac size: Normal. Mediastinum/Aorta: Normal mediastinum. No osseous abnormality seen. XR/XR chest 1V portable [id number] IMPRESSION: Unremarkable portable chest.
[2024-05-29] MEDS: dexamethasone 4 mg Tablet 6 MG PO (16:23)
[2024-05-29] MEDS: remdesivir 200 MG in sodium chloride 0.9% (100 ml) 60 ML 100 MG IV (16:24)
[2024-05-29 16:41] VITALS: BP 118/79; PULSE 89; RESP 20; TEMP 37.6; O2SAT 98
[2024-05-29 17:09] VITALS: PULSE 85; RESP 18; O2SAT 98
--- NOTE | 2024-05-29 17:27 | P.NPUPN_ITS ---
Subjective NPU 2 Subjective: Patient presented today reporting that he was doing okay but having spikes fevers. He was tested for different viral suspects and did test positive for COVID. We transferred him to [facility] but when I spoke to him there was able to share with him that other people tested positive as well and so we discussed transferring him back after his infusion given that isolation was not going to be an overall effective treatment for the unit. He was able to understand those issues but continued to be quite psychotic talking about this person that he sees is the mastermind behind the killings as black magic because he performs black magic. He denied any side effects of the medication. Mental Status Exam 2 MSE Comments: This is an underweight white male, in hospital scrubs, with limited grooming, and less intense eye contact looking less disheveled. No abnormal movements except for mild psychomotor agitation. Somewhat tense cooperative with exam in significant distress. Speech was mostly normal rate and volume with notable nasal congestion. Mood described as okay; affect slightly subdued. Thought process, linear. Thought content: patient denied any suicidal or homicidal ideation, there were no delusions reported but paranoia and some bizarre and possibly persecutory delusions noted, patient denied any auditory or visual hallucinations but appeared at times to be attending to internal stimuli. The patient denied experiencing suicidal ideation or thoughts of violence towards others. He reported feeling anxious but denied feelings of paranoia or hallucinations. He did express concerns about his declining memory and cognitive abilities, particularly when playing chess. The patient also reported experiencing flashes during the day but denied having nightmares or flashbacks. Attention, concentration, and memory appear limited but were not formally tested. He is alert and oriented to person. Insight and judgment and impulse control are impaired. Vitals/I&O/Wt Last Vital Signs Temp 99.5 F 05/29/24 20:00 Pulse 108 H 05/29/24 20:00 Resp 18 05/29/24 20:00 BP 114/72 05/29/24 20:00 Pulse Ox 96 05/29/24 20:00 O2 Del Method Room Air 05/29/24 20:00 Data NPU 05/30/24 07:12 05/29/24 08:47 Micro: Microbiology 05/29/24 11:58 Legionella Urinary Antigen - Final Unknown Source 05/29/24 11:58 Bacterial Antigens - Final Urine Kidney Microbiology 05/29/24 11:58 Unknown Source Legionella Urinary Antigen - Final 05/29/24 11:58 Urine Kidney Bacterial Antigens - Final A&P Assessment and plan (1) History of schizoaffective disorder: (2) Psychosis: (3) Cannabis use disorder: Plan This is a 28-year-old white male unknown to [facility] inpatient or outpatient who presents with kyara psychosis apparently off medication and a poor historian.The patient appears to have a complex psychiatric history with dissatisfaction towards previous treatments. He has reported an increase in anxiety and tobacco use, as well as concerns about declining cognitive abilities. There is also a history of substance use including cannabis and methamphetamines. 1.? Initiated Abilify 10 mg p.o. daily and will titrate to effect. Increased to 15 mg. 2.? Encourage individual, group, and milieu therapy. 3.? Continue q-15 minute checks for safety. 4.? Encourage sober living treatment, after discharge, at the highest level of care, to which he is willing to commit. 5. Get collateral information. 6. Evaluate for safety given 96-hour hold. 21-day hold hearing today. 7. Patient was transferred to [facility] after testing positive for COVID. He was transferred for isolation based on protecting the other patients on the unit. However after he left 2 other patients tested positive. It was decided been that we would not be able to transfer everybody to [facility] and we would manage it like we have in the past and hopefully, if possible and keep people who have not tested positive and have not been exposed on a different side. He was transferred back to. Involuntary Hold Information 2 96 Hour Hold: 96 Hour Involuntary Admission: Yes 96 Hour Hold Ending Date: 05/26/24 96 Hour Hold Ending Time: 15:50 Attestations NPU 2 Medical Necessity Statement*: Inpatient hospitalization is medically necessary and the clinically appropriate intervention, at this time. We will monitor medications and make changes as indicated. Likely length of stay is 5-8 days. Coding Level of Care Code Acute Code for Chg Fwd Diagnoses History of schizoaffective disorder Z86.59 Psychosis F29 Cannabis use disorder F12.90
[2024-05-29 20:00] VITALS: BP 114/72; PULSE 108; RESP 18; TEMP 37.5; O2SAT 96
[2024-05-29] MEDS: BuSPIRONE 10 mg Tablet PO (21:30)
[2024-05-29] MEDS: neomycin-poly-bacitracin oint 28 gm 1 APPLIC TOPICAL (22:13)
[2024-05-30] VITALS: BP 101/66; PULSE 80; RESP 17; TEMP 36.7; O2SAT 98
[2024-05-30 04:00] VITALS: BP 129/94; PULSE 97; RESP 18; TEMP 36.3; O2SAT 97
[2024-05-30 07:23] LABS: Basophils % 0.2 %; Hematocrit 41.3 % (37-53); Lymphocytes # 1.5 10^3/uL (0.8-4.8); Lymphocytes % 17.6 %; Mean Corpuscular HGB Conc 32.9 g/dL (30-55); Mean Corpuscular Hemoglobin 29.8 pg (27-33); Mean Corpuscular Volume 90.4 fl (82-101); Mean Platelet Volume 10.3 fL (7.4-10.4); Monocytes # 0.8 10^3/uL (0.2-0.9); Monocytes % 9.5 %; Neutrophils # 6.06 10^3/uL (1.8-7.7); Neutrophils % 72.3 %; Nucleated Red Blood Cells % 0 %; Platelet Count 259 10^3/cmm (157-399); Red Blood Count 4.57 10^6/uL (3.85-5.65); Red Cell Distribution Width 13.2 % (12.1-15.1); White Blood Count 8.39 10^3/uL (3.29-11.43)
--- NOTE | 2024-05-30 07:36 | P.NPUPN_ITS ---
Subjective NPU 2 Subjective: Patient presented today reporting that he is feeling okay in regards to the COVID. He continued to have significant delusional thinking per staff reports and direct observation. He was asking today whether or not he should keep saying what he believes. We discussed that he should report the truth as he sees it but we continue to discuss psychosis and the purpose of the Abilify. He endorsed an openness to the injection however we discussed needing to be sure that the medication was truly working. We discussed Dr. Dowling returning tomorrow and that they would continue this conversation about treatment and discharge. He denied any side effects to the medication. Mental Status Exam 2 MSE Comments: This is an underweight white male, in hospital scrubs, with limited grooming, and less intense eye contact looking less disheveled. No abnormal movements except for mild psychomotor agitation. Somewhat tense cooperative with exam in significant distress. Speech was mostly normal rate and volume with notable nasal congestion. Mood described as okay; affect slightly subdued. Thought process, linear. Thought content: patient denied any suicidal or homicidal ideation, there were no delusions reported but paranoia and some bizarre and possibly persecutory delusions noted, patient denied any auditory or visual hallucinations but appeared at times to be attending to internal stimuli. The patient denied experiencing suicidal ideation or thoughts of violence towards others. He reported feeling anxious but denied feelings of paranoia or hallucinations. He did express concerns about his declining memory and cognitive abilities, particularly when playing chess. The patient also reported experiencing flashes during the day but denied having nightmares or flashbacks. Attention, concentration, and memory appear limited but were not formally tested. He is alert and oriented to person. Insight and judgment and impulse control are impaired. Vitals/I&O/Wt Last Vital Signs Temp 97.4 F L 05/30/24 04:00 Pulse 97 05/30/24 04:00 Resp 18 05/30/24 04:00 BP 129/94 05/30/24 04:00 Pulse Ox 97 05/30/24 04:00 O2 Del Method Room Air 05/30/24 04:00 05/29/24 05/30/24 05/30/24 22:59 06:59 14:59 Intake Total 460 / 460 Balance 460 / 460 Data NPU 05/30/24 07:12 08/24/24 07:12 Micro: Microbiology 05/29/24 11:58 Legionella Urinary Antigen - Final Unknown Source 05/29/24 11:58 Bacterial Antigens - Final Urine Kidney Microbiology 05/29/24 11:58 Unknown Source Legionella Urinary Antigen - Final 05/29/24 11:58 Urine Kidney Bacterial Antigens - Final A&P Assessment and plan (1) History of schizoaffective disorder: (2) Psychosis: (3) Cannabis use disorder: Plan This is a 28-year-old white male unknown to [facility] inpatient or outpatient who presents with kyara psychosis apparently off medication and a poor historian.The patient appears to have a complex psychiatric history with dissatisfaction towards previous treatments. He has reported an increase in anxiety and tobacco use, as well as concerns about declining cognitive abilities. There is also a history of substance use including cannabis and methamphetamines. 1.? Initiated Abilify 10 mg p.o. daily and will titrate to effect. Increased to 15 mg. 2.? Encourage individual, group, and milieu therapy. 3.? Continue q-15 minute checks for safety. 4.? Encourage sober living treatment, after discharge, at the highest level of care, to which he is willing to commit. 5. Get collateral information. 6. Evaluate for safety given 96-hour hold. 21-day hold hearing today. 7. Patient was transferred to [facility] after testing positive for COVID. He was transferred for isolation based on protecting the other patients on the unit. However after he left 2 other patients tested positive. It was decided been that we would not be able to transfer everybody to [facility] and we would manage it like we have in the past and hopefully, if possible and keep people who have not tested positive and have not been exposed on a different side. He was transferred back to NPU 05/29/24 . Involuntary Hold Information 2 96 Hour Hold: 96 Hour Involuntary Admission: Yes 96 Hour Hold Ending Date: 05/26/24 96 Hour Hold Ending Time: 15:50 Attestations NPU 2 Medical Necessity Statement*: Inpatient hospitalization is medically necessary and the clinically appropriate intervention, at this time. We will monitor medications and make changes as indicated. Likely length of stay is 5-8 days. Coding Level of Care Code Acute Code for [facility] Fwd Diagnoses History of schizoaffective disorder Z86.59 Psychosis F29 Cannabis use disorder F12.90
[2024-05-30 07:41] LABS: Magnesium 2.1 mg/dL (1.7-2.3)
[2024-05-30 07:42] LABS: Alanine Aminotransferase 17 U/L (0-41); Albumin Level 4.6 g/dL (3.5-5.2); Alkaline Phosphatase 61 U/L (40-130); Anion Gap 14.2 (5-19); Aspartate Amino Transferase 16 U/L (0-40); Blood Urea Nitrogen 15 mg/dL (6-20); Calcium 9.2 mg/dL (8.5-10.5); Carbon Dioxide 28 mmol/L (22-29); Chloride 100 mmol/L (98-107); Creatinine Clr Calc Pharmacy 93.2018; Glomerular Filtration Rate 87.7 mL/min (90-130); Glucose 108 mg/dL (65-115); Osmolality Calculated 287 mOsm/kg (285-295); Potassium 4.2 mmol/L (3.5-5.1); Sodium 138 mmol/L (136-145); Total Bilirubin 0.2 mg/dL (0.15-1.2); Total Protein 7.6 g/dL (6.6-8.7)
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
[2024-05-30 07:56] LABS: Folate Level 5.2 ng/mL (4.5-32.2)
[2024-05-30 08:00] VITALS: BP 127/79; PULSE 76; RESP 18; TEMP 36.8; O2SAT 100
[2024-05-30] MEDS: ARIPiprazole 30 mg Tablet 15 MG PO (09:10)
[2024-05-30] MEDS: nicotine 2 mg Gum BUCCAL (09:10)
[2024-05-30] MEDS: pantoprazole DR 40 mg Tablet PO (09:11)
--- NOTE | 2024-05-30 09:50 | P.PN_ITS ---
Subjective 2 Subjective: Yesterday evening patient transferred back to Neuropsych Unit as multiple patients were found to be COVID-positive. Patient has remained on room air. Vitals/I&O/Wt Last Vital Signs Temp 98.2 F 05/30/24 08:00 Pulse 76 05/30/24 08:00 Resp 18 05/30/24 08:00 BP 127/79 05/30/24 08:00 Pulse Ox 100 05/30/24 08:00 O2 Del Method Room Air 05/30/24 04:00 05/29/24 05/30/24 05/30/24 22:59 06:59 14:59 Intake Total 460 / 460 Balance 460 / 460 Physical Exam 2 Narrative: General: No acute distress, AO x3, thin build HEENT: PERRLA, pupils bilaterally equal and reactive Chest: Normal vesicular breath sounds, no added sounds, equal good air entry bilaterally CVS: S1-S2 regular, no murmurs, no tachycardia, no gallops, no rubs Abdomen: Soft, nontender, no organomegaly, bowel sounds present Neuro: No focal deficits, no facial deformity, AO x3, power 5/5 in all limbs Data 05/30/24 07:12 05/30/24 07:12 Micro: Microbiology 05/29/24 11:58 Legionella Urinary Antigen - Final Unknown Source 05/29/24 11:58 Bacterial Antigens - Final Urine Kidney A&P Assessment and plan (1) COVID-19: Hypoxia secondary to COVID-19 pneumonia: Mild Oxygen supplementation keeping saturation over 88%. Dexamethasone 6 mg oral daily. DuoNeb every 6 hour as needed. He does have history of asthma in past. Pulmonary toilet with incentive spirometry flutter valve. We will monitor inflammatory markers including CRP every 48 hours. Check D-dimer. If elevated will do CT otherwise chest x-ray for further evaluation of possible pneumonia. Will plan for anticoagulation as per the results. Check sputum culture, MRSA swab, procalcitonin, urine Legionella, bacterial antigen, blood culture. Procalcitonin negative. Low suspicion of bacterial infection for now. (2) Asthma: No exacerbation currently. Will continue to monitor. (3) History of schizoaffective disorder: As per Neuropsych Unit. Patient is on 21-day hold. (4) Psychosis: Plan Patient can be transferred back to Neuropsych Unit. No isolation required as multiple patients over the age have been found to have COVID-19. Patient has mild COVID-19. Remains on room air. Continue dexamethasone to finish a 10-day course. Monitor CBC, CMP and CRP every 48 hours. DuoNebs as needed. If patient is requiring oxygen to maintain saturation 90% we will plan for IV remdesivir. He did get 200 mg of loading dose while being on MedSurg on 05/29. Attestations 2 Medical Necessity Statement*: As per primary team. Diagnoses COVID-19 U07.1 Asthma J45.909 History of schizoaffective disorder Z86.59 Psychosis F29
[2024-05-30 12:00] VITALS: BP 112/78; PULSE 92; RESP 20; TEMP 37.1; O2SAT 99
[2024-05-30 16:00] VITALS: BP 110/71; PULSE 99; RESP 18; TEMP 37.4; O2SAT 95
[2024-05-30] MEDS: dexamethasone 4 mg Tablet 6 MG PO (16:07)
[2024-05-30 19:36] VITALS: BP 119/81; PULSE 90; RESP 16; TEMP 36.7; O2SAT 98
[2024-05-31] VITALS: BP 101/69; PULSE 63; RESP 18; TEMP 36.9; O2SAT 100
[2024-05-31 04:00] VITALS: BP 112/74; PULSE 84; RESP 18; TEMP 36.4; O2SAT 100
[2024-05-31 06:00] VITALS: BMI 20.2
[2024-05-31 08:00] VITALS: BP 108/74; PULSE 118; RESP 20; TEMP 36.8; O2SAT 99
[2024-05-31] MEDS: ARIPiprazole 30 mg Tablet 15 MG PO (08:06)
[2024-05-31] MEDS: pantoprazole DR 40 mg Tablet PO (08:06)
--- NOTE | 2024-05-31 08:37 | PC.NURSE ---
Patient denies avh and si/hi. Patient continues to say people are being killed and tells this RN it is not a belief of his because it is true. He says he knows this is true because people that he considers his friends are informing him of this. He then began rambling about having OCD and not delusions, how he knew serial killers were going [place] and [place] the main highways, that he did not want to stay here for 180 days, and that he had called the FBI several times but that they would tell them that they had to go after they had the information they needed.
[2024-05-31] MEDS: hyDROXYzine 25 mg Capsule 50 MG PO ×2 (08:49→20:03)
[2024-05-31 11:52] VITALS: BP 144/79; PULSE 88; RESP 16; TEMP 36.8; O2SAT 100
[2024-05-31 16:00] VITALS: BP 143/91; PULSE 104; RESP 18; TEMP 36.9; O2SAT 99
[2024-05-31] MEDS: dexamethasone 4 mg Tablet 6 MG PO (16:31)
[2024-05-31] MEDS: benztropine 1 mg Tablet PO (17:10)
--- NOTE | 2024-05-31 17:27 | PC.NURSE ---
Patient was on the phone with his father and was very insistent with his father that he needed to call the nursing staff to advocate for him. His father eventually agreed to call the nurses and this RN answered. His father was very confused because he didn't understand why the patient wanted him to call. He stated that he felt the patient had been doing better the last couple of days and was able to hold a conversation, but seemed very verbally aggressive today. This RN talked with the father, who is listed on the patient's HIPAA form, about the patient thinking that having a new doctor today might mean he was leaving and that when he realized the doctor wasn't releasing him today he appeared to panic. The patient's father expressed concern and support for his son.
--- NOTE | 2024-05-31 17:34 | P.PN_ITS ---
Subjective 2 Subjective: Patient has been reportedly doing well. Has remained on room air. Has been complaining of myalgias. Has remained afebrile as per charting. Vitals/I&O/Wt Last Vital Signs Temp 98.4 F 05/31/24 16:00 Pulse 104 H 05/31/24 16:00 Resp 18 05/31/24 16:00 BP 143/91 05/31/24 16:00 Pulse Ox 99 05/31/24 16:00 O2 Del Method Room Air 05/31/24 11:52 Weight last 48 hrs Weight 56.812 kg Data 05/30/24 07:12 05/30/24 07:12 Micro: Microbiology 05/29/24 09:31 Group A Streptococcus Rapid Screen - Final Throat A&P Assessment and plan (1) COVID-19: Hypoxia secondary to COVID-19 pneumonia: Mild Oxygen supplementation keeping saturation over 88%. Dexamethasone 6 mg oral daily. DuoNeb every 6 hour as needed. He does have history of asthma in past. Pulmonary toilet with incentive spirometry flutter valve. We will monitor inflammatory markers including CRP every 48 hours. Check D-dimer. If elevated will do CT otherwise chest x-ray for further evaluation of possible pneumonia. Will plan for anticoagulation as per the results. Check sputum culture, MRSA swab, procalcitonin, urine Legionella, bacterial antigen, blood culture. Procalcitonin negative. Low suspicion of bacterial infection for now. (2) Asthma: No exacerbation currently. Will continue to monitor. (3) History of schizoaffective disorder: As per Neuropsych Unit. Patient is on 21-day hold. (4) Psychosis: Plan Patient can be transferred back to Neuropsych Unit. No isolation required as multiple patients over the age have been found to have COVID-19. Patient has mild COVID-19. Remains on room air. Continue dexamethasone to finish a 10-day course. Monitor CBC, CMP and CRP every 48 hours. DuoNebs as needed. If patient is requiring oxygen to maintain saturation 90% we will plan for IV remdesivir. He did get 200 mg of loading dose while being on MedSurg on 05/29. 05/31: Patient has remained stable. Continue with dexamethasone to finish a 10-day course. Monitor inflammatory markers every 48 hours. Medicine will sign off for now. Please reconsult if needed. Attestations 2 Medical Necessity Statement*: As per primary team. Coding Level of Care Code Acute Code for Chg Fwd Diagnoses COVID-19 U07.1 Asthma J45.909 History of schizoaffective disorder Z86.59 Psychosis F29
--- NOTE | 2024-05-31 18:19 | P.NPUPN_ITS ---
Subjective NPU 2 Subjective: 28-year-old male with schizoaffective di sorder admitted with bizarre delusions. He had continued to hear perplexed as to why he was here in the hospital and continue to state that he needed to find out why the people around him, his neighbors at home, were attempting to kill people. He had not reported what he would do if he felt threatened. He had indicated that he had been hospitalized a few times in the past and had been resistant to taking multiple medications stating that he was opposed to taking antipsychotics, SSRIs, and other mood stabilizers. He had stated that he needed help with his obsessive-compulsive symptoms as well as his problems with anxiety. He had minimized the use of marijuana although he had reported having used marijuana recently. He had reported that he was not having thoughts of hurting himself or others. He had tested positive for COVID and reported feeling under the weather today. He had continued to describe that the staff was somehow engaged in a plot to keep him here in the hospital unnecessarily and to somehow related to his worries about people dying around his home. Mental Status Exam 2 MSE Comments: This is an underweight white male, in hospital scrubs, with limited grooming, and less intense eye contact with disheveled appearance. No abnormal movements except for mild psychomotor agitation. Somewhat cooperative with exam in significant distress. Speech was mostly normal rate and volume with notable nasal congestion. Mood described as anxious.; affect was bizarre and odd. Thought process, linear. Thought content: patient denied any suicidal or homicidal ideation, there were no delusions reported but paranoia and some bizarre and possibly persecutory delusions noted, patient denied any auditory or visual hallucinations but appeared at times to be attending to internal stimuli. The patient denied experiencing suicidal ideation or thoughts of violence towards others. He did express concerns about his declining memory and cognitive abilities, particularly when playing chess. T Attention, concentration, and memory appear limited but were not formally tested. He is alert and oriented to person. Insight and judgment and impulse control are impaired. Vitals/I&O/Wt Last Vital Signs Temp 98.4 F 05/31/24 16:00 Pulse 104 H 05/31/24 16:00 Resp 18 05/31/24 16:00 BP 143/91 05/31/24 16:00 Pulse Ox 99 05/31/24 16:00 O2 Del Method Room Air 05/31/24 11:52 Weight last 48 hrs Weight 56.812 kg Data NPU 05/30/24 07:12 05/30/24 07:12 Micro: Microbiology 05/29/24 09:31 Group A Streptococcus Rapid Screen - Final Throat Microbiology 05/29/24 09:31 Throat Group A Streptococcus Rapid Screen - Final A&P Assessment and plan (1) History of schizoaffective disorder: (2) Psychosis: (3) Cannabis use disorder: Plan This is a 28-year-old white male unknown to [facility] inpatient or outpatient who presents with kyara psychosis apparently off medication and a poor historian.The patient appears to have a complex psychiatric history with dissatisfaction towards previous treatments. He has reported an increase in anxiety and tobacco use, as well as concerns about declining cognitive abilities. There is also a history of substance use including cannabis and methamphetamines. 1.? Continue Abilify 15mg daily. 2.? Encourage individual, group, and milieu therapy. 3.? Continue q-15 minute checks for safety. 4.? Encourage sober living treatment, after discharge, at the highest level of care, to which he is willing to commit. 5. Get collateral information. 6. Evaluate for safety given 96-hour hold. 21-day hold hearing today. 7. Patient was transferred to [facility] after testing positive for COVID. He was transferred for isolation based on protecting the other patients on the unit. However after he left 2 other patients tested positive. It was decided been that we would not be able to transfer everybody to [facility] and we would manage it like we have in the past and hopefully, if possible and keep people who have not tested positive and have not been exposed on a different side. He was transferred back to NPU 05/29/24 . Involuntary Hold Information 2 96 Hour Hold: 96 Hour Involuntary Admission: Yes 96 Hour Hold Ending Date: 05/26/24 96 Hour Hold Ending Time: 15:50 Attestations NPU 2 Medical Necessity Statement*: Inpatient hospitalization is medically necessary and the clinically appropriate intervention, at this time. We will monitor medications and make changes as indicated. Likely length of stay is 5-8 days. Coding Level of Care Code Acute Code for [facility] Fwd Diagnoses History of schizoaffective disorder Z86.59 Psychosis F29 Cannabis use disorder F12.90
[2024-05-31] MEDS: nicotine 2 mg Gum BUCCAL (18:48)
[2024-05-31 20:00] VITALS: BP 132/88; PULSE 85; RESP 18; TEMP 36.3; O2SAT 99
[2024-05-31] MEDS: cetylpyridinium Lozenge 1 EACH MUCOUS MEM (20:25)
[2024-06-01] VITALS: BP 122/84; PULSE 88; RESP 18; TEMP 36.7; O2SAT 98
[2024-06-01] MEDS: trazodone 50 mg Tablet PO (00:21)
[2024-06-01 04:00] VITALS: BP 145/87; PULSE 71; RESP 18; TEMP 36.7; O2SAT 99
--- NOTE | 2024-06-01 06:19 | PC.NURSE ---
Shift note Patient had a few hours of sleep. Was intrusive by coming to the desk requesting snacks multiple times after being told that snack time was over. He rambled to the affect how one would know if delusions where reality or not. Asked if I was investing in the stock market. Asked if I was shinto. He said he was on [place] time zone in the [facility] and that is why he was not sleeping.
--- NOTE | 2024-06-01 06:32 | PC.NURSE ---
Patient stated he wanted to go to ER for nicotine withdrawal. Was offered nicotine gum but patient denied. Advised to speak to physician today about his concerns for withdrawal.
[2024-06-01 08:00] VITALS: BP 130/87; PULSE 82; RESP 16; TEMP 36.8; O2SAT 100
[2024-06-01 08:13] LABS: Basophils % 0.1 %; Lymphocytes # 1.7 10^3/uL (0.8-4.8); Lymphocytes % 15.4 %; Mean Corpuscular HGB Conc 33.2 g/dL (30-55); Mean Corpuscular Hemoglobin 30.1 pg (27-33); Mean Corpuscular Volume 90.7 fl (82-101); Mean Platelet Volume 10.9 fL (7.4-10.4); Monocytes # 0.8 10^3/uL (0.2-0.9); Monocytes % 7.2 %; Neutrophils # 8.47 10^3/uL (1.8-7.7); Neutrophils % 76.8 %; Nucleated Red Blood Cells % 0 %; Platelet Count 308 10^3/cmm (157-399); Red Blood Count 4.52 10^6/uL (3.85-5.65); Red Cell Distribution Width 13.1 % (12.1-15.1); White Blood Count 11.03 10^3/uL (3.29-11.43)
--- NOTE | 2024-06-01 08:27 | PC.NURSE ---
PT UP IN ROOM PACING, HAS BEEN INCREASINGLY PARANOID THIS AM WITH ANXIETY NOTED. PT DENIES SI/HI AT THIS TIME. PT DOES REPORT HEARING VOICES AND SEEING THINGS THAT ARE NOT THERE BUT STATES IT COULD BE MY HAIR IN MY FACE I'M SEEING. I JUST SEE THINGS AND THEN GET PARANOID AND ANXIOUS BECAUSE I THINK I'M LIVING IN [place]. DO YOU THINK I CAN LIVE THERE? PT WAS OFFERED PRN ANXIETY MEDICATIONS AND IS NOT SURE IF HE WILL TAKE THEM AT THIS POINT., RATES ANXIETY 8. RATES DEPRESSION 0/. EDUCATION WAS PROVIDED ON MEDICATIONS. PT TESTED COVID POSITIVE ON SATURDAY BUT STATES HE IS FEELING FINE, I THINK I'M OVER IT. PT DENIES PAIN. PT STATES GOAL FOR THE DAY IS NOT SEE ANYMORE BODIES. PT REPORTS HE DID NOT SLEEP WELL LAST NIGHT AND WOULD LIKE TO GET SOMETHING ELSE OTHER THAN TRAZODONE, ITS MIXING ALL THAT STUFF THATS MAKING IT WORSE. PT WAS ASSURED RN WOULD NOTIFY DR. HU AND SLEEP MEDICATIONS WOULD BE DISCUSSED. PT CONTINUES TO VOICE DELUSIONS AND PARANOID BEHAVIORS. ALL QUESTIONS ANSWERED AND SUPPORT WAS VOICED.
[2024-06-01 08:30] LABS: Alanine Aminotransferase 17 U/L (0-41); Albumin Level 4.6 g/dL (3.5-5.2); Alkaline Phosphatase 63 U/L (40-130); Anion Gap 18.6 (5-19); Aspartate Amino Transferase 15 U/L (0-40); Blood Urea Nitrogen 14 mg/dL (6-20); Calcium 9.1 mg/dL (8.5-10.5); Carbon Dioxide 26 mmol/L (22-29); Chloride 99 mmol/L (98-107); Creatinine Clr Calc Pharmacy 103.5575; Globulin 3.3 g/dL (1.3-4.6); Glomerular Filtration Rate 99.1 mL/min (90-130); Glucose 116 mg/dL (65-115); Osmolality Calculated 291 mOsm/kg (285-295); Potassium 3.6 mmol/L (3.5-5.1); Sodium 140 mmol/L (136-145); Total Bilirubin 0.2 mg/dL (0.15-1.2); Total Protein 7.9 g/dL (6.6-8.7)
[2024-06-01] MEDS: benztropine 1 mg Tablet PO (08:33)
[2024-06-01] MEDS: pantoprazole DR 40 mg Tablet PO (08:33)
[2024-06-01] MEDS: OLANZapine 5 mg ODT PO (08:33)
[2024-06-01] MEDS: docusate sodium 100 mg Capsule PO (08:33)
[2024-06-01] MEDS: ARIPiprazole 10 mg Tablet 20 MG PO (08:33)
[2024-06-01] MEDS: nicotine 2 mg Gum BUCCAL (11:54)
[2024-06-01 12:00] VITALS: BP 132/81; PULSE 91; RESP 16; TEMP 36.6; O2SAT 97
[2024-06-01 16:00] VITALS: BP 129/85; PULSE 92; RESP 17; TEMP 36.9; O2SAT 98
[2024-06-01] MEDS: dexamethasone 4 mg Tablet 6 MG PO (16:02)
[2024-06-01] MEDS: cetylpyridinium Lozenge 1 EACH MUCOUS MEM (16:03)
--- NOTE | 2024-06-01 16:22 | W.PM.NPUPNS ---
Subjective NPU Subjective: 28-year-old male with schizoaffective disorder admitted with bizarre delusions. He continued to state that he believed that his neighbors were killing people around him. He had reported that he felt worse on his medication regimen. He had continued to state that he felt anxious. He had reported that he had been using marijuana. He had stated that he had not been taking any medications recently for managing his problems with anxiety. Patient reported no significant change in respiratiory symptoms associated with COVID despite being positive for COVID at this time. He had appeared somewhat confused stating that he needed to discuss with me the reasons that he could be safe at home but was unable to elaborate as to what his goals were while being here in the hospital. Mental Status Exam MSE Comments: This is an underweight white male, in hospital scrubs, with limited grooming, and less intense eye contact with disheveled appearance. No abnormal movements except for mild psychomotor agitation. He was somewhat cooperative with exam in significant distress. Speech was mostly normal rate and volume and at times scattered. Mood described as okay. His affect was bizarre and odd. Thought process was circumstantial and at times derailed. Thought content: patient denied any suicidal or homicidal ideation, there were no delusions reported but paranoia and some bizarre and possibly persecutory delusions noted, patient denied any auditory or visual hallucinations but appeared at times to be attending to internal stimuli. The patient denied experiencing suicidal ideation or thoughts of violence towards others. He did express concerns about his declining memory and cognitive abilities, particularly when playing chess. His Attention, concentration, and memory appear poor. He is alert and oriented to person. Insight and judgment and impulse control are impaired. Vitals/I&O/Wt Last Vital Signs Temp 97.8 F 06/01/24 12:00 Pulse 91 06/01/24 12:00 Resp 16 06/01/24 12:00 BP 132/81 06/01/24 12:00 Pulse Ox 97 06/01/24 12:00 O2 Del Method Room Air 06/01/24 04:00 Weight last 48 hrs Weight 56.812 kg Data NPU 06/01/24 07:58 06/01/24 07:58 Micro: Microbiology 05/29/24 09:31 Group A Streptococcus Rapid Screen - Final Throat Microbiology 05/29/24 09:31 Throat Group A Streptococcus Rapid Screen - Final A&P Assessment and plan (1) Psychosis: (2) History of schizoaffective disorder: (3) Cannabis use disorder: Plan This is a 28-year-old white male unknown to [facility] inpatient or outpatient who presents with kyara psychosis apparently off medication and a poor historian.The patient appears to have a complex psychiatric history with dissatisfaction towards previous treatments. He has reported an increase in anxiety and tobacco use, as well as concerns about declining cognitive abilities. There is also a history of substance use including cannabis and methamphetamines. 1.? Increase abilify to 20mg daily. 2.? Encourage individual, group, and milieu therapy. 3.? Continue q-15 minute checks for safety. 4.? Encourage sober living treatment, after discharge, at the highest level of care, to which he is willing to commit. 5. Get collateral information. 6. Evaluate for safety given 96-hour hold. 21-day hold hearing today. 7. Patient was transferred to [facility] after testing positive for COVID. He was transferred for isolation based on protecting the other patients on the unit. However after he left 2 other patients tested positive. It was decided been that we would not be able to transfer everybody to [facility] and we would manage it like we have in the past and hopefully, if possible and keep people who have not tested positive and have not been exposed on a different side. He was transferred back to [facility] 05/29/24 . Involuntary Hold Information 96 Hour Hold: 96 Hour Involuntary Admission: Yes 96 Hour Hold Ending Date: 05/26/24 96 Hour Hold Ending Time: 15:50 Attestations NPU Medical Necessity Statement*: Inpatient hospitalization is medically necessary and the clinically appropriate intervention, at this time. We will monitor medications and make changes as indicated. Likely length of stay is 5-6 days. Coding Level of Care Code Acute Code for [facility] Fw Diagnoses Psychosis F29 History of schizoaffective disorder Z86.59 Cannabis use disorder F12.90
[2024-06-01 20:00] VITALS: BP 117/87; PULSE 98; RESP 18; TEMP 36.5; O2SAT 96
[2024-06-01] MEDS: haloperidol 5 mg Tablet PO (21:35)
[2024-06-02] VITALS: RESP 18
--- NOTE | 2024-06-02 00:18 | PC.NURSE ---
Patient had just fallen asleep not long before rounds. Since he hasn't slept long was advised to only get 02.
[2024-06-02 04:00] VITALS: BP 116/84; PULSE 84; RESP 18; TEMP 36.6; O2SAT 98
[2024-06-02] MEDS: ARIPiprazole 10 mg Tablet 20 MG PO (08:15)
[2024-06-02] MEDS: pantoprazole DR 40 mg Tablet PO (08:16)
[2024-06-02] MEDS: cetylpyridinium Lozenge 1 EACH MUCOUS MEM (08:16)
[2024-06-02 08:51] VITALS: BP 127/84; PULSE 89; RESP 17; TEMP 36.8; O2SAT 99
[2024-06-02] MEDS: phenol oral Spray 177 mL 3 SPRAY MUCOUS MEM ×2 (10:42→18:44)
[2024-06-02] MEDS: ascorbic acid 500 mg Tablet PO (10:42)
[2024-06-02] MEDS: nicotine 2 mg Gum BUCCAL (11:36)
[2024-06-02 12:00] VITALS: BP 108/73; PULSE 88; RESP 17; TEMP 36.6; O2SAT 99
[2024-06-02 14:09] LABS: Methicillin-Resist S.aureu PCR NOT DETECTED (NOT DETECTED)
[2024-06-02 16:00] VITALS: BP 128/75; PULSE 117; RESP 16; TEMP 36.8; O2SAT 98
[2024-06-02] MEDS: dexamethasone 4 mg Tablet 6 MG PO (16:10)
--- NOTE | 2024-06-02 17:24 | P.NPUPN_ITS ---
Subjective NPU 2 Subjective: 28-year-old male with schizoaffective di sorder admitted with bizarre delusions. Patient had continued to state that he was going to go to the [facility] to live after he left here. He had reported that he would not take any medications when he left here. He had continued to report that his neighbors around him had been killing people secretly and he reported that he had reported this to someone in homeland security. He had continued to describe feeling anxious. He continued to struggle with completion of routine activities of daily living here on the unit. He had denied feeling depressed. He had acknowledged in the past having problems with not sleeping well and reported that he had not felt well on antipsychotic agents . Mental Status Exam 2 MSE Comments: This is an underweight white male, in hospital scrubs, with limited grooming, and less intense eye contact with disheveled appearance. No abnormal movements except for mild psychomotor agitation. He was somewhat cooperative with exam in significant distress. Speech was scattered. Mood described as okay. His affect was bizarre and odd. Thought process was circumstantial with continued derailment. Thought content: patient denied any suicidal or homicidal ideation, there were no delusions reported but paranoia and some bizarre and possibly persecutory delusions noted, patient denied any auditory or visual hallucinations and did not appear to be responding to internal stimuli. The patient denied experiencing suicidal ideation or thoughts of violence towards others. He did express concerns about his declining memory and cognitive abilities, particularly when playing chess. His Attention, concentration, and memory appear poor. He is alert and oriented to person. Insight, judgment and impulse control are impaired. Vitals/I&O/Wt Last Vital Signs Temp 98 F 06/02/24 12:00 Pulse 88 06/02/24 12:00 Resp 17 06/02/24 12:00 BP 108/73 06/02/24 12:00 Pulse Ox 99 06/02/24 12:00 O2 Del Method Room Air 06/02/24 08:51 Data NPU 06/01/24 07:58 06/01/24 07:58 A&P Assessment and plan (1) Psychosis: (2) History of schizoaffective disorder: (3) Cannabis use disorder: Plan This is a 28-year-old white male unknown to [facility] inpatient or outpatient who presents with kyara psychosis apparently off medication and a poor historian.The patient appears to have a complex psychiatric history with dissatisfaction towards previous treatments. He has reported an increase in anxiety and tobacco use, as well as concerns about declining cognitive abilities. There is also a history of substance use including cannabis and methamphetamines. 1.? Continue abilify to 20mg daily, add zyprexa 5mg at night. 2.? Encourage individual, group, and milieu therapy. 3.? Continue q-15 minute checks for safety. 4.? Encourage sober living treatment, after discharge, at the highest level of care, to which he is willing to commit. 5. Get collateral information. 6. Patient on 21 day hold. Involuntary Hold Information 2 96 Hour Hold: 96 Hour Involuntary Admission: Yes 96 Hour Hold Ending Date: 05/26/24 96 Hour Hold Ending Time: 15:50 Attestations NPU 2 Medical Necessity Statement*: Inpatient hospitalization is medically necessary and the clinically appropriate intervention, at this time. We will monitor medications and make changes as indicated. Likely length of stay is 5-6 days. Coding Level of Care Code Acute Code for [facility] Fwd Diagnoses Psychosis F29 History of schizoaffective disorder Z86.59 Cannabis use disorder F12.90
[2024-06-02 19:25] VITALS: BP 117/80; PULSE 87; RESP 16; TEMP 36.7; O2SAT 98
[2024-06-02] MEDS: OLANZapine 5 mg ODT PO (20:19)
[2024-06-03] VITALS: BP 113/78; PULSE 108; RESP 18; TEMP 36.6; O2SAT 100
[2024-06-03] MEDS: phenol oral Spray 177 mL 3 SPRAY MUCOUS MEM ×3 (00:57→19:51)
[2024-06-03] MEDS: haloperidol 5 mg Tablet PO (01:00)
[2024-06-03 04:00] VITALS: BP 113/76; PULSE 64; RESP 18; TEMP 36.4; O2SAT 100
[2024-06-03 08:00] VITALS: BP 116/79; PULSE 95; RESP 18; TEMP 37
[2024-06-03 08:10] LABS: Basophils % 0.2 %; Hematocrit 44.1 % (37-53); Lymphocytes # 3.2 10^3/uL (0.8-4.8); Mean Corpuscular HGB Conc 32.9 g/dL (30-55); Mean Corpuscular Volume 91.3 fl (82-101); Mean Platelet Volume 10.6 fL (7.4-10.4); Monocytes # 1.2 10^3/uL (0.2-0.9); Monocytes % 7.7 %; Neutrophils # 10.98 10^3/uL (1.8-7.7); Neutrophils % 68.7 %; Nucleated Red Blood Cells % 0.1 %; Platelet Count 328 10^3/cmm (157-399); Red Blood Count 4.83 10^6/uL (3.85-5.65); Red Cell Distribution Width 13.2 % (12.1-15.1); White Blood Count 16.02 10^3/uL (3.29-11.43)
[2024-06-03 08:27] LABS: Alanine Aminotransferase 19 U/L (0-41); Albumin Level 4.2 g/dL (3.5-5.2); Alkaline Phosphatase 65 U/L (40-130); Anion Gap 15.3 (5-19); Aspartate Amino Transferase 10 U/L (0-40); Blood Urea Nitrogen 14 mg/dL (6-20); Calcium 9.1 mg/dL (8.5-10.5); Carbon Dioxide 26 mmol/L (22-29); Chloride 102 mmol/L (98-107); Creatinine Clr Calc Pharmacy 103.5575; Globulin 3.2 g/dL (1.3-4.6); Glomerular Filtration Rate 99.1 mL/min (90-130); Glucose 135 mg/dL (65-115); Osmolality Calculated 291 mOsm/kg (285-295); Potassium 4.3 mmol/L (3.5-5.1); Sodium 139 mmol/L (136-145); Total Bilirubin 0.2 mg/dL (0.15-1.2); Total Protein 7.4 g/dL (6.6-8.7)
[2024-06-03] MEDS: pantoprazole DR 40 mg Tablet PO (09:04)
[2024-06-03] MEDS: ascorbic acid 500 mg Tablet PO (09:04)
[2024-06-03] MEDS: nicotine 2 mg Gum BUCCAL (09:50)
[2024-06-03 12:00] VITALS: BP 126/84; PULSE 82; RESP 18; TEMP 36.9; O2SAT 98
--- NOTE | 2024-06-03 13:32 | P.NPUPN_ITS ---
Subjective NPU 2 Subjective: 28-year-old male with schizoaffective di sorder admitted with bizarre delusions. The patient reported having no thoughts of hurting himself or others. He had reported struggles with sleep and stated that he did not like the way that Zyprexa had made him feel last night. He had requested Haldol to help him sleep better. He had reported that he would go to live with his father and stated that he intended on helping him as he stated that his father was struggling with his own physical problems. He stated that when he was better he would go to the [facility] to be with his girlfriend. The patient had taken a shower last night for the first time in several days. He denied any racing thoughts. Mental Status Exam 2 MSE Comments: This is an underweight white male, in hospital scrubs, with improved grooming, and less intense eye contact with disheveled appearance. No abnormal involuntary motor movements appreciated. He was more cooperative with exam in significant distress. Speech was productive but evidence of rambling at times. Mood described as okay. His affect was bizarre and odd. Thought process was linear but he continued to derail. Thought content: patient denied any suicidal or homicidal ideation, there were no delusions reported but paranoia and some bizarre and possibly persecutory delusions noted, patient denied any auditory or visual hallucinations and did not appear to be responding to internal stimuli. The patient denied experiencing suicidal ideation or thoughts of violence towards others. He did express concerns about his declining memory and cognitive abilities, particularly when playing chess. His Attention, concentration, and memory appear poor. He is alert and oriented to person. Insight, judgment and impulse control are impaired. Vitals/I&O/Wt Last Vital Signs Temp 98.4 F 06/03/24 12:00 Pulse 82 06/03/24 12:00 Resp 18 06/03/24 12:00 BP 126/84 06/03/24 12:00 Pulse Ox 98 06/03/24 12:00 O2 Del Method Room Air 06/03/24 12:00 06/02/24 06/03/24 06/03/24 22:59 06:59 14:59 Intake Total 480 / 480 Balance 480 / 480 Data NPU 06/03/24 07:56 06/03/24 07:56 A&P Assessment and plan (1) Psychosis: (2) History of schizoaffective disorder: (3) Cannabis use disorder: Plan This is a 28-year-old white male unknown to [facility] inpatient or outpatient who presents with kyara psychosis apparently off medication and a poor historian.The patient appears to have a complex psychiatric history with dissatisfaction towards previous treatments. He has reported an increase in anxiety and tobacco use, as well as concerns about declining cognitive abilities. There is also a history of substance use including cannabis and methamphetamines. 1.? Continue abilify to 20mg daily, Discontinue Zyprexa, add Haldol 2mg at night routinely. 2.? Encourage individual, group, and milieu therapy. 3.? Continue q-15 minute checks for safety. 4.? Encourage sober living treatment, after discharge, at the highest level of care, to which he is willing to commit. 5. Get collateral information. 6. Patient on 21 day hold. Involuntary Hold Information 2 96 Hour Hold: 96 Hour Involuntary Admission: Yes 96 Hour Hold Ending Date: 05/26/24 96 Hour Hold Ending Time: 15:50 Attestations NPU 2 Medical Necessity Statement*: Inpatient hospitalization is medically necessary and the clinically appropriate intervention, at this time. We will monitor medications and make changes as indicated. Likely length of stay is 5-6 days. Coding Level of Care Code Acute Code for [facility] Fwd Diagnoses Psychosis F29 History of schizoaffective disorder Z86.59 Cannabis use disorder F12.90
[2024-06-03 16:00] VITALS: BP 108/74; PULSE 91; RESP 18; TEMP 37; O2SAT 100
[2024-06-03] MEDS: dexamethasone 4 mg Tablet 6 MG PO (16:35)
[2024-06-03] MEDS: haloperidol 1 mg Tablet 2 MG PO (19:50)
[2024-06-03] MEDS: ARIPiprazole 10 mg Tablet 20 MG PO (19:51)
[2024-06-03 20:00] VITALS: BP 123/84; PULSE 92; RESP 17; TEMP 36.9; O2SAT 95
[2024-06-04 04:00] VITALS: BP 135/86; PULSE 106; RESP 16; TEMP 36.9; O2SAT 99
[2024-06-04 08:00] VITALS: BP 124/82; PULSE 97; RESP 17; TEMP 36.8; O2SAT 98
[2024-06-04] MEDS: haloperidol 5 mg Tablet PO (08:29)
[2024-06-04] MEDS: pantoprazole DR 40 mg Tablet PO (08:29)
[2024-06-04] MEDS: ascorbic acid 500 mg Tablet PO (08:29)
[2024-06-04] MEDS: benztropine 1 mg Tablet PO (08:29)
--- NOTE | 2024-06-04 09:14 | PC.NURSE ---
UP IN [place] MILD ANXIETY IS NOTED. PT RATES ANXIETY 6/10 AND THIS RN DID GIVE HALDOL 5 MG ORDERED FOR INCREASED ANXIETY. RATES DEPRESSION /. REPORTS HE SLEPT WELL LAST NIGHT. DENIES SI/HI AND AVH AT THIS TIME. PT IS SOMATIC AT TIMES C/O TREMORS AND MUCSLE WEAKNESS, THIS RN DID GIVE COGENTIN 1 MG ORDERED FOR EPS SYMPTOMS. RATES PAIN 2/10 STATES HIS PAIN IS GENERALIZED. PT STATES HIS GOAL FOR THE DAY IS TO GET OUT OF HERE. ALL QUESTIONS ANSWERED AND SUPPORT VOICED.
[2024-06-04] MEDS: nicotine 4 mg lozenge MUCOUS MEM (09:31)
[2024-06-04 12:00] VITALS: BP 122/85; PULSE 109; RESP 17; O2SAT 98
[2024-06-04] MEDS: phenol oral Spray 177 mL 3 SPRAY MUCOUS MEM ×2 (12:54→20:34)
[2024-06-04] MEDS: hyDROXYzine 25 mg Capsule 50 MG PO ×2 (13:06→22:01)
--- NOTE | 2024-06-04 13:07 | PC.NURSE ---
Administered vistaril 50mg PO to patient for anxietty 07/16. Patient anxious after phone call with father.
[2024-06-04 15:47] VITALS: BP 104/64; PULSE 92; RESP 16; TEMP 37.1; O2SAT 99
--- NOTE | 2024-06-04 16:19 | P.NPUPN_ITS ---
Subjective NPU 2 Subjective: 28-year-old male with schizoaffective di sorder admitted with bizarre delusions. The patient continued to appear somewhat confused on the unit. He had repeatedly asked about receiving Zyprexa sublingual despite the prior day stating that he wanted Haldol instead. He continued to struggle with difficulties with making decisions. He had stated that he did not want to be on disability and was refusing to file for his Medicaid application. He had continued to report that his father had somehow been involved in him getting on Medicaid and stated that I may have to rebecca him . The patient had stated that he wished to go home with his father but at the same time reported that he was going there to help his father. He had continued to express distrust towards others and stated that he continued to feel worried about his neighbors who had killed people. Mental Status Exam 2 MSE Comments: This is an underweight white male, in hospital scrubs, with improved grooming, and less intense eye contact with disheveled appearance. No abnormal involuntary motor movements appreciated. He was more cooperative with exam in significant distress. Speech was rambling and normal in volume today. Mood described as allright. His affect was bizarre and odd. Thought process was linear initially but would derail quickly. Thought content: patient denied any suicidal or homicidal ideation, there were bizarre delusions noted and significant paranoia appreciated. He did appear at times to be responding to internal stimuli. The patient denied experiencing suicidal ideation or thoughts of violence towards others. His Attention, concentration, and memory appear poor. He is alert and oriented to person. Insight, judgment and impulse control are impaired. Vitals/I&O/Wt Last Vital Signs Temp 98.7 F 06/04/24 15:47 Pulse 92 06/04/24 15:47 Resp 16 06/04/24 15:47 BP 104/64 06/04/24 15:47 Pulse Ox 99 06/04/24 15:47 O2 Del Method Room Air 06/04/24 15:47 Data NPU 06/03/24 07:56 06/03/24 07:56 A&P Assessment and plan (1) Psychosis: (2) History of schizoaffective disorder: (3) Cannabis use disorder: Plan This is a 28-year-old white male unknown to [facility] inpatient or outpatient who presents with kyara psychosis apparently off medication and a poor historian.The patient appears to have a complex psychiatric history with dissatisfaction towards previous treatments. He has reported an increase in anxiety and tobacco use, as well as concerns about declining cognitive abilities. There is also a history of substance use including cannabis and methamphetamines. 1.? Continue abilify to 20mg daily, Restart Prn zyprexa if needed. Continue Haldol 2mg at night routinely. 2.? Encourage individual, group, and milieu therapy. 3.? Continue q-15 minute checks for safety. 4.? Encourage sober living treatment, after discharge, at the highest level of care, to which he is willing to commit. 5. Get collateral information. 6. Patient on 21 day hold. Involuntary Hold Information 2 96 Hour Hold: 96 Hour Involuntary Admission: Yes 96 Hour Hold Ending Date: 05/26/24 96 Hour Hold Ending Time: 15:50 Attestations NPU 2 Medical Necessity Statement*: Inpatient hospitalization is medically necessary and the clinically appropriate intervention, at this time. We will monitor medications and make changes as indicated. The patient's likely length of stay is 7-9 days. Coding Level of Care Code Acute Code for [facility] Fwd Diagnoses Psychosis F29 History of schizoaffective disorder Z86.59 Cannabis use disorder F12.90
[2024-06-04] MEDS: dexamethasone 4 mg Tablet 6 MG PO (16:40)
--- NOTE | 2024-06-04 16:45 | PC.NURSE ---
PT CONTINUES TO STATE HE NEEDS THE ZYDIS 5 MG DUE TO IT WORKING BETTER. THIS RN SPOKE WITH DR. HU ABOUT THE MEDICATIONS BEING DISCONTINUED. DR. HU STATED HE DISCONTINUED IT DUE TO PT STATING HE DID NOT WANT IT DUE TO IT NOT WORKING. THIS RN EDUCATED PT REGARDING THE PRN ZYDIS IN DEPTH AND DR. HU WANTED PT TO KNOW HE NEEDS TO MAKE UP HIS MIND ON WHAT MEDICATIONS ARE WORKING AND WHICH ARE NOT.L PT CONTINUES TO STATE THE ZYDIS IS WORKING NEEDED FOR ANXIETY AND THE HALDOL IS WORKING FOR SLEEP. PT WAS GIVEN EDUCATIONAL SHEETS ON BOTH MEDICATIONS. ALL QUESTIONS ANSWERED AND SUPPORT WAS VOICED.
[2024-06-04 20:00] VITALS: BP 129/84; PULSE 100; RESP 18; TEMP 36.8; O2SAT 97
[2024-06-04] MEDS: ARIPiprazole 10 mg Tablet 20 MG PO (20:32)
[2024-06-04] MEDS: haloperidol 1 mg Tablet 2 MG PO (20:32)
[2024-06-04] MEDS: nicotine 2 mg Gum BUCCAL (20:37)
[2024-06-04] MEDS: OLANZapine 5 mg ODT PO (22:01)
[2024-06-05] VITALS: BP 111/79; PULSE 110; RESP 16; TEMP 36.7; O2SAT 99
[2024-06-05 04:00] VITALS: BP 89/54; PULSE 90; RESP 16; TEMP 36.7; O2SAT 98
[2024-06-05 08:00] VITALS: BP 111/69; PULSE 76; RESP 16; TEMP 36.7; O2SAT 99
[2024-06-05] MEDS: pantoprazole DR 40 mg Tablet PO (08:09)
[2024-06-05] MEDS: OLANZapine 5 mg ODT PO ×2 (08:09→17:12)
[2024-06-05] MEDS: benztropine 1 mg Tablet PO (08:11)
--- NOTE | 2024-06-05 08:41 | PC.NURSE ---
IN BED RESTING PT IS UPSET THIS AM DUE TO ANOTHER PT GOING UP AND DOWN THE [facility] TELLING EVERYONE TO WAKE UP. PT WAS CONFRONTATIONAL WITH STAFF AND STATED I DON'T LIKE BEING TOLD WHAT TO DO. PT WAS EDUCATED AND INFORMED THAT THE STAFF WILL WAKE HIM UP AND BE THE ONES TO GIVE INSTRUCTIONS AND THE OTHER PT ON THE [facility] WAS INFORMED TO STOP THE BEHAVIOR. PT CONTINUED TO YELL AND MAKE STATEMENTS TO STAFF THAT HE WILL DO WHAT I WANT. PT WAS GIVEN ZYDIS 5 MG ORDERED FOR INCREASED ANXIETY. PT REFUSED VITAMIN C AND MEDICATION WAS RETURNED. DENIES PAIN. DENIES SI/HI AND AVH AT THIS TIME. RATES ANXIETY 03/16 AND DEPRESSION 02/13. PT IS INTRUSIVE WITH STAFF AND WANTS TO STAY AT THE NURSES STATION ALL SHIFT ASKING THE SAME QUESTIONS AND MAKING THE SAME DEMANDS THAT HE NOT BE GIVEN A SHOT AND HE WANTS TO BE DISCHARGED. PT HAS RECEIVED MULTIPLE EDUCATION SHEETS ON MEDICATIONS AND DIAGNOSES. PT STATES GOAL FOR THE DAY IS TO GET CLEAR ANSWERS ABOUT MY DISCHARGE. PT WAS INFORMED THIS RN WOULD ASK DR. HU IN MORNING MEETING BUT DISCHARGE DATES ARE NOT SET THEY DEPEND ON HOW HE IS RESPONDING TO MEDICATIONS. PT WAS ALSO GIVEN COGENTIN 1 MG ORDERED FOR MUSCLE TIGHTNESS. ALL QUESTIONS WERE ANSWERED AND SUPPORT WAS VOICED.
[2024-06-05 11:38] VITALS: BP 118/73; PULSE 88; RESP 16; TEMP 36.4; O2SAT 98
[2024-06-05] MEDS: acetaminophen 325 mg Tablet 650 MG PO (13:45)
[2024-06-05] MEDS: blistex lip oint 7 gm Tube 1 APPLIC TOPICAL (15:08)
[2024-06-05] MEDS: cetylpyridinium Lozenge 1 EACH MUCOUS MEM (15:10)
[2024-06-05] MEDS: dexamethasone 4 mg Tablet 6 MG PO (15:23)
[2024-06-05 15:44] VITALS: BP 117/74; PULSE 100; RESP 16; TEMP 36.9; O2SAT 98
--- NOTE | 2024-06-05 17:31 | W.PM.NPUPNS ---
Subjective NPU Subjective: 28-year-old male with schizoaffective disorder admitted with bizarre delusions. The patient appeared less confused and intrusive today on the unit. He had continued to request klonopin for anxiety particularly reporting anxiety in the morning. He reports no side effects from the haldol and appeared less preoccupied by worries of going to live with his father. He continued to promote his beliefs about his previous neighbors having buried people around his previous area of residence but stated that i am not worried about that now. He reports difficulty with falling asleep. Mental Status Exam MSE Comments: This is an underweight white male, in hospital scrubs, with improved grooming, and less intense eye contact with disheveled appearance. No abnormal involuntary motor movements appreciated. He was more cooperative with exam in mild distress. Speech was productive with normal volume. Mood described as okay. His affect was subdued today. Thought process was linear initially and did not derail today. Thought content: patient denied any suicidal or homicidal ideation, there were continued delusions noted and significant paranoia appreciated. He did appear at times to be responding to internal stimuli. The patient denied experiencing suicidal ideation or thoughts of violence towards others. His attention, concentration, and memory appear poor. He is alert and oriented to person today. Insight was poor and judgment and impulse control are limited currently. Vitals/I&O/Wt Last Vital Signs Temp 98.5 F 06/05/24 15:44 Pulse 100 06/05/24 15:44 Resp 16 06/05/24 15:44 BP 117/74 06/05/24 15:44 Pulse Ox 98 06/05/24 15:44 O2 Del Method Room Air 06/05/24 15:44 Data NPU 06/03/24 07:56 06/03/24 07:56 A&P Assessment and plan (1) Psychosis: (2) History of schizoaffective disorder: (3) Cannabis use disorder: Plan This is a 28-year-old white male unknown to [facility] inpatient or outpatient who presents with kyara psychosis apparently off medication and a poor historian.The patient appears to have a complex psychiatric history with dissatisfaction towards previous treatments. He has reported an increase in anxiety and tobacco use, as well as concerns about declining cognitive abilities. There is also a history of substance use including cannabis and methamphetamines. 1.? Continue abilify to 20mg daily, Restart Prn zyprexa if needed. Continue Haldol 2mg at night routinely. Patient showing some improvement with routine nightly haldol. Monitor for EPS symptoms. Mirtazapine to target anxiety. 2.? Encourage individual, group, and milieu therapy. 3.? Continue q-15 minute checks for safety. 4.? Encourage sober living treatment, after discharge, at the highest level of care, to which he is willing to commit. 5. Get collateral information. 6. Patient on 21 day hold. Involuntary Hold Information 96 Hour Hold: 96 Hour Involuntary Admission: Yes 96 Hour Hold Ending Date: 05/26/24 96 Hour Hold Ending Time: 15:50 Attestations NPU Medical Necessity Statement*: Inpatient hospitalization is medically necessary and the clinically appropriate intervention, at this time. We will monitor medications and make changes as indicated. The patient's likely length of stay is 7-9 days. Coding Level of Care Code Acute Code for g Fwd Diagnoses Psychosis F29 History of schizoaffective disorder Z86.59 Cannabis use disorder F12.90
[2024-06-05 20:00] VITALS: BP 126/80; PULSE 108; RESP 16; TEMP 37.1; O2SAT 98
[2024-06-05] MEDS: ARIPiprazole 10 mg Tablet 20 MG PO (20:55)
[2024-06-05] MEDS: haloperidol 1 mg Tablet 2 MG PO (20:55)
[2024-06-05] MEDS: mirtazapine 15 mg Tablet PO (20:55)
[2024-06-05] MEDS: phenol oral Spray 177 mL 3 SPRAY MUCOUS MEM (20:58)
[2024-06-05] MEDS: nicotine 2 mg Gum BUCCAL (21:01)
[2024-06-06] VITALS: BP 104/74; PULSE 74; RESP 16; TEMP 36.6; O2SAT 99
[2024-06-06 04:00] VITALS: BP 113/75; PULSE 83; RESP 17; TEMP 36.5; O2SAT 99
[2024-06-06 08:00] VITALS: BP 127/91; PULSE 95; RESP 18; TEMP 36.8; O2SAT 98
--- NOTE | 2024-06-06 09:24 | PC.NURSE ---
Patient refused morning medciations of vitamin C and protonix. Patient stated that he no longer needs these. Education provided, patient still refused.
[2024-06-06] MEDS: ibuprofen 600 mg Tablet PO (10:50)
[2024-06-06 12:00] VITALS: BP 136/85; PULSE 92; RESP 18; TEMP 36.9; O2SAT 98
--- NOTE | 2024-06-06 13:52 | P.NPUPN_ITS ---
Subjective NPU 2 Subjective: 28-year-old male with schizoaffective di sorder admitted with bizarre delusions. The patient reported feeling anxious. He reported that he had been sleeping better. He had reported myriad of various physical problems including joint pain. He had stated that he had spoken with his father and was again motivated to return home briefly to his father and eventually moved to the [facility]. He had been showing some evidence of increased motivation to engage in self-care. He had reported no feelings of hopelessness. He had appeared to perseverate less on concerns about his previous neighbors having murdered people. Mental Status Exam 2 MSE Comments: This is an underweight white male, in hospital scrubs, with improved grooming, and less intense eye contact with disheveled appearance. No abnormal involuntary motor movements appreciated. He was more cooperative with exam in mild distress. Speech was productive with normal volume. Mood described as good. His affect remained subdued. Thought process was linear initially with no derailment noted. Thought content: patient denied any suicidal or homicidal ideation, there were continued delusions noted and significant paranoia appreciated. He did not appear to be responding to internal stimuli. The patient denied experiencing suicidal ideation or thoughts of violence towards others. His attention, concentration, and memory appear poor. He is alert and oriented to person today. Insight was poor and judgment and impulse control are limited currently. He continued to hesitate regarding filing for medicaid stating that he did not want to mess with my diagnosis. Vitals/I&O/Wt Last Vital Signs Temp 98.2 F 06/06/24 08:00 Pulse 95 06/06/24 08:00 Resp 18 06/06/24 08:00 BP 127/91 06/06/24 08:00 Pulse Ox 98 06/06/24 08:00 O2 Del Method Room Air 06/06/24 08:00 06/05/24 06/06/24 06/06/24 22:59 06:59 14:59 Intake Total 480 / 480 Balance 480 / 480 Data NPU 06/03/24 07:56 06/03/24 07:56 A&P Assessment and plan (1) Psychosis: (2) History of schizoaffective disorder: (3) Cannabis use disorder: Plan This is a 28-year-old white male unknown to [facility] inpatient or outpatient who presents with kyara psychosis apparently off medication and a poor historian.The patient appears to have a complex psychiatric history with dissatisfaction towards previous treatments. He has reported an increase in anxiety and tobacco use, as well as concerns about declining cognitive abilities. There is also a history of substance use including cannabis and methamphetamines. 1.? Continue abilify to 20mg daily, Restart Prn zyprexa if needed. Continue Haldol 2mg at night routinely. Patient showing some improvement with routine nightly haldol. Monitor for EPS symptoms. Mirtazapine to target anxiety. 2.? Encourage individual, group, and milieu therapy. 3.? Continue q-15 minute checks for safety. 4.? Encourage sober living treatment, after discharge, at the highest level of care, to which he is willing to commit. 5. Get collateral information. 6. Patient on 21 day hold. Involuntary Hold Information 2 96 Hour Hold: 96 Hour Involuntary Admission: Yes 96 Hour Hold Ending Date: 05/26/24 96 Hour Hold Ending Time: 15:50 Attestations NPU 2 Medical Necessity Statement*: Inpatient hospitalization is medically necessary and the clinically appropriate intervention, at this time. We will monitor medications and make changes as indicated. The patient's likely length of stay is 5-7 days. Coding Level of Care Code Acute Code for [facility] Fwd Diagnoses Psychosis F29 History of schizoaffective disorder Z86.59 Cannabis use disorder F12.90
[2024-06-06] MEDS: nicotine 4 mg lozenge MUCOUS MEM (13:59)
[2024-06-06] MEDS: phenol oral Spray 177 mL 3 SPRAY MUCOUS MEM (14:00)
[2024-06-06 16:00] VITALS: BP 142/92; PULSE 115; RESP 16; TEMP 37.3; O2SAT 97
[2024-06-06 20:00] VITALS: BP 133/86; PULSE 95; RESP 18; TEMP 36.7; O2SAT 96
[2024-06-06] MEDS: mirtazapine 15 mg Tablet PO (21:02)
[2024-06-06] MEDS: haloperidol 1 mg Tablet 2 MG PO (21:02)
[2024-06-06] MEDS: ARIPiprazole 10 mg Tablet 20 MG PO (21:02)
[2024-06-06] MEDS: nicotine 2 mg Gum BUCCAL (21:02)
[2024-06-07] VITALS: BP 108/68; PULSE 81; RESP 17; TEMP 36.7; O2SAT 98
[2024-06-07 04:00] VITALS: BP 103/70; PULSE 76; RESP 17; TEMP 36.4; O2SAT 98
[2024-06-07 06:00] VITALS: BMI 20.2
[2024-06-07 08:00] VITALS: BP 135/86; PULSE 114; RESP 16; TEMP 36.9
[2024-06-07] MEDS: ibuprofen 600 mg Tablet PO (11:06)
[2024-06-07] MEDS: nicotine 2 mg Gum BUCCAL (11:08)
[2024-06-07] MEDS: phenol oral Spray 177 mL 3 SPRAY MUCOUS MEM ×2 (11:10→17:46)
[2024-06-07 12:00] VITALS: BP 142/82; PULSE 103; RESP 16; TEMP 36.8; O2SAT 99
[2024-06-07 16:00] VITALS: BP 123/81; PULSE 70; RESP 13; TEMP 36.5; O2SAT 97
--- NOTE | 2024-06-07 16:39 | W.PM.NPUPNS ---
Subjective NPU Subjective: 28-year-old male with schizoaffective disorder admitted with bizarre delusions and paranoia. The patient appeared less preoccupied by delusions of neighbors murdering others around him. He continued to report ideas of moving to [facility] and continued to be firm in decision to not wish to be on medicaid for some bizarre reason. He reports continued request of pain medication and wished to have a wheelchair because of his knee pain and chronic joint pain. He reported no sleep continuity disruption with less prn use of zyprexa noted. Mental Status Exam MSE Comments: This is an underweight white male, in hospital scrubs, with improved grooming, and less intense eye contact with disheveled appearance. No abnormal involuntary motor movements appreciated. He was more cooperative with exam in mild distress. Speech was productive with normal volume. Mood described as okay. His affect remained subdued. Thought process was linear and logical. Thought content: patient denied any suicidal or homicidal ideation, there were continued bizarre ideas noted but less prominent and he did not appear to be responding to internal stimuli. The patient denied experiencing suicidal ideation or thoughts of violence towards others. His attention, concentration, and memory appear poor. He is alert and oriented to person today. Insight was poor and judgment and impulse control are limited currently. Vitals/I&O/Wt Last Vital Signs Temp 98.3 F 06/07/24 12:00 Pulse 103 H 06/07/24 12:00 Resp 16 06/07/24 12:00 BP 142/82 06/07/24 12:00 Pulse Ox 99 06/07/24 12:00 O2 Del Method Room Air 06/07/24 12:00 06/07/24 06/07/24 06/07/24 06:59 14:59 22:59 Intake Total 960 / 960 Balance 960 / 960 Weight last 48 hrs Weight 56.812 kg Data NPU 06/03/24 07:56 06/03/24 07:56 A&P Assessment and plan (1) Psychosis: (2) History of schizoaffective disorder: (3) Cannabis use disorder: Plan This is a 28-year-old white male unknown to [facility] inpatient or outpatient who presents with kyara psychosis apparently off medication and a poor historian.The patient appears to have a complex psychiatric history with dissatisfaction towards previous treatments. He has reported an increase in anxiety and tobacco use, as well as concerns about declining cognitive abilities. There is also a history of substance use including cannabis and methamphetamines. 1.? Continue abilify to 20mg daily, Continue Haldol 2mg at night routinely. Patient showing some improvement with routine nightly haldol. Monitor for EPS symptoms. Mirtazapine to target anxiety. 2.? Encourage individual, group, and milieu therapy. 3.? Continue q-15 minute checks for safety. 4.? Encourage sober living treatment, after discharge, at the highest level of care, to which he is willing to commit. 5. Get collateral information. 6. Patient on 21 day hold. Involuntary Hold Information 96 Hour Hold: 96 Hour Involuntary Admission: Yes 96 Hour Hold Ending Date: 05/26/24 96 Hour Hold Ending Time: 15:50 Attestations NPU Medical Necessity Statement*: Inpatient hospitalization is medically necessary and the clinically appropriate intervention, at this time. We will monitor medications and make changes as indicated. The patient's likely length of stay is 5-7 days. Coding Level of Care Code Acute Code for g Fwd Diagnoses Psychosis F29 History of schizoaffective disorder Z86.59 Cannabis use disorder F12.90
[2024-06-07] MEDS: dexamethasone 4 mg Tablet 6 MG PO (17:41)
[2024-06-07 20:00] VITALS: BP 140/83; PULSE 105; RESP 18; TEMP 36.4; O2SAT 98
[2024-06-07] MEDS: mirtazapine 15 mg Tablet PO (20:09)
[2024-06-07] MEDS: haloperidol 1 mg Tablet 2 MG PO (20:09)
[2024-06-07] MEDS: ARIPiprazole 10 mg Tablet 20 MG PO (20:09)
[2024-06-08] VITALS: BP 127/70; PULSE 71; RESP 16; TEMP 36.3; O2SAT 97
[2024-06-08 04:00] VITALS: BP 133/76; PULSE 92; RESP 17; TEMP 36.6; O2SAT 98
[2024-06-08 08:00] VITALS: BP 142/81; PULSE 103; RESP 18; TEMP 37.1; O2SAT 98
[2024-06-08] MEDS: ascorbic acid 500 mg Tablet PO (08:22)
[2024-06-08] MEDS: OLANZapine 5 mg ODT PO ×2 (08:22→20:46)
[2024-06-08] MEDS: pantoprazole DR 40 mg Tablet PO (08:22)
[2024-06-08] MEDS: benztropine 1 mg Tablet PO (08:22)
[2024-06-08] MEDS: cetylpyridinium Lozenge 1 EACH MUCOUS MEM (08:22)
--- NOTE | 2024-06-08 09:02 | PC.NURSE ---
LAYING ON BENCH DURING ASSESSMENT. PT CONTINUES TO BE INTRUSIVE WITH STAFF AND IMPULSIVE AT TIMES. PT SPEECH IS RAMBLING AND ANIMATED. NOTED TO BE SOMATIC STATING I THIN\K MY STOMACH AND MY JOINTS HURT. I DON'T KNOW WHY BUT SO DO MY MUSCLES. I BET ITS FROM THE STEROIDS OR THE ABILIFY. PT HAS BEEN GIVEN MULTIPLE PRINT OUT ON MEDICATIONS THAT HE RECEIVES AND EDUCATION HAS BEEN PROVIDED. DENIES SI/HI AND AVH AT THIS TIME. RATES ANXIETY 01/14 AND DEPRESSION 02/13.. PT WAS GIVEN ZYDIS 5 MG ORDERED FOR ANXIETY. RATES PAIN 11/16 I THINK, WAIT MAYBE I DON'T HAVE PAIN. I'M NOT SURE. DECLINES TYLENOL. PT STATES HE SLEPT OK I THINK. PT REPORTS HAVING IRRITABLE FLASHES ABOUT MY DAD AND NOT GETTING TO LOOK THROUGH MY GRANDPA'S STUFF BUT I THINK I'M OK. PT STATES GOAL FOR THE DAY IS GET A CLEAR ANSWER ON MY DISCHARGE. ALL QUESTIONS ANSWERED AND SUPPORT VOICED.
[2024-06-08 11:34] VITALS: BP 129/85; PULSE 101; RESP 18; TEMP 36.9; O2SAT 97
[2024-06-08] MEDS: nicotine 2 mg Gum BUCCAL ×2 (14:27→20:46)
[2024-06-08 16:00] VITALS: BP 141/84; PULSE 114; RESP 18; TEMP 36; O2SAT 98
[2024-06-08] MEDS: dexamethasone 4 mg Tablet 6 MG PO (16:23)
--- NOTE | 2024-06-08 17:55 | PC.NURSE ---
PT ON PHONE YELLING AT HIS DAD, SLAMMING DOWN THE PHONE. PT WAS VERBALLY REDIRECTED AWAY FROM PHONE. PT INSISTS THAT THE NURSES SPEAK TO HIS DAD AND TELL HIM THAT HE IS HOMELESS AND THAT HE NEEDS TO TELL THE [facility] OFFICE HE IS HOMELESS STATUS. PT WAS EDUCATED THAT THE NURSES DO NOT TELL OR HAVE ANYTHING TO DO WITH THE SOCIAL SECURITY OFFICE OR WHO IS HIS PAYEE. PT STATES IF THE DR CAN DISCHARGE ME TOMORROW THEN ME AND MY DAD CAN FILL OUT THE MEDICAID SO YOU GUYS GET PAID. PT WAS AGAIN EDUCATED THAT THE NURSES DO NOT GET INVOLVED WITH THE BILLING OR FILLING OUT MEDICAID FORMS AND DO NOT GIVE ADVICE ON THOSE THINGS THAT IF HE WANTS TO GET MEDICAID HE CAN. PT CONTINUES TO MAKE STATEMENTS I GUESS YOU GUYS WON'T GET PAID. RN ASSURED THAT HIS INSURANCE STATUS HAS NO BEARING ON THE CARE HE IS PROVIDED OR HIS DISCHARGE DATE AND THE DR. WILL DISCHARGEE HIM WHEN HE IS BETTER. PT CONTINUES TO BE UPSET BUT IS ABLE TO BE REDIRECTED. PTS DAD PHONE NUMBER WAS GIVEN TO CASE MANAGEMENT TO FOLLOW UP WITH PTS DAD PER PT REQUEST. SUPPORT WAS VOICED.
--- NOTE | 2024-06-08 18:27 | P.NPUPN_ITS ---
Subjective NPU 2 Subjective: 28-year-old male with schizoaffective di sorder admitted with bizarre delusions and paranoia. Patient appeared to be perseverating less on issues regarding his former neighbors. He did continue to state that he was going to the [facility] and continued to appear evasive regarding why he did not wish to file for Medicaid. He had continued to waffle between having thoughts of living briefly with his father while at other times discussing having nothing to do with living with his father. The patient had appeared genuinely perplexed as to what he would do if he were to go home soon as he stated that he would like to go to the [facility] and would only be in [place] for a few days. He had continued to appear somatically preoccupied but did not appear to request any wheelchair for his chronic pain in the knees. The patient stated that he would like to leave soon. Mental Status Exam 2 MSE Comments: This is an underweight white male, in hospital scrubs, with poor grooming today, and less intense eye contact with disheveled appearance. No abnormal involuntary motor movements appreciated. He was more cooperative with exam in mild distress. Speech was productive with normal volume. Mood described as allright. His affect remained subdued. Thought process was illogical and again showing derailment. Thought content: patient denied any suicidal or homicidal ideation, there were continued bizarre ideas noted but less prominent and he did not appear to be responding to internal stimuli. The patient denied experiencing suicidal ideation or thoughts of violence towards others. His attention, concentration, and memory appear poor. He is alert and oriented to person today. Insight was poor and judgment and impulse control are limited currently. Vitals/I&O/Wt Last Vital Signs Temp 96.8 F L 06/08/24 16:00 Pulse 114 H 06/08/24 16:00 Resp 18 06/08/24 16:00 BP 141/84 06/08/24 16:00 Pulse Ox 98 06/08/24 16:00 O2 Del Method Room Air 06/08/24 04:00 Weight last 48 hrs Weight 56.812 kg Data NPU 06/03/24 07:56 06/03/24 07:56 A&P Assessment and plan (1) Psychosis: (2) History of schizoaffective disorder: (3) Cannabis use disorder: Plan This is a 28-year-old white male unknown to [facility] inpatient or outpatient who presents with kyara psychosis apparently off medication and a poor historian.The patient appears to have a complex psychiatric history with dissatisfaction towards previous treatments. He has reported an increase in anxiety and tobacco use, as well as concerns about declining cognitive abilities. There is also a history of substance use including cannabis and methamphetamines. 1.? Continue abilify to 20mg daily, Continue Haldol 2mg at night routinely. Patient showing some improvement with routine nightly haldol 2mg nightly. Monitor for EPS symptoms. Mirtazapine 15mg at night to target anxiety. 2.? Encourage individual, group, and milieu therapy. 3.? Continue q-15 minute checks for safety. 4.? Encourage sober living treatment, after discharge, at the highest level of care, to which he is willing to commit. 5. Get collateral information. 6. Patient on 21 day hold. Involuntary Hold Information 2 96 Hour Hold: 96 Hour Involuntary Admission: Yes 96 Hour Hold Ending Date: 05/26/24 96 Hour Hold Ending Time: 15:50 Attestations NPU 2 Medical Necessity Statement*: Inpatient hospitalization is medically necessary and the clinically appropriate intervention, at this time. We will monitor medications and make changes as indicated. The patient's likely length of stay is 5-7 days. Coding Level of Care Code Acute Code for [facility] Fwd Diagnoses Psychosis F29 History of schizoaffective disorder Z86.59 Cannabis use disorder F12.90
[2024-06-08 19:20] VITALS: BP 132/82; PULSE 109; RESP 18; TEMP 36.3; O2SAT 98
[2024-06-08] MEDS: ARIPiprazole 10 mg Tablet 20 MG PO (20:17)
[2024-06-08] MEDS: trazodone 50 mg Tablet PO (20:18)
[2024-06-08] MEDS: hyDROXYzine 25 mg Capsule 50 MG PO (20:18)
[2024-06-08] MEDS: mirtazapine 15 mg Tablet PO (20:18)
[2024-06-08] MEDS: haloperidol 1 mg Tablet 2 MG PO (20:18)
[2024-06-08] MEDS: calcium carbonate 500 mg Chew Tablet 1000 MG PO (22:11)
[2024-06-08] MEDS: alum-mag-hydroxide-sime 30 mL UDC PO (22:11)
[2024-06-09] VITALS (7 sets, daily range): BP systolic 113–136; BP diastolic 72–87; PULSE 86–107; RESP 16–20; TEMP 36.8–37.1; O2SAT 97–99
[2024-06-09] MEDS: nicotine 2 mg Gum BUCCAL (07:08)
[2024-06-09] MEDS: pantoprazole DR 40 mg Tablet PO (07:49)
[2024-06-09] MEDS: hyDROXYzine 25 mg Capsule 50 MG PO (08:00)
--- NOTE | 2024-06-09 08:06 | PC.NURSE ---
Patient refused vitamin c this morning. Stated he believes it is causing his stomach issues.
[2024-06-09] MEDS: OLANZapine 5 mg ODT PO ×2 (08:40→12:42)
--- NOTE | 2024-06-09 13:04 | PC.NURSE ---
Patient obsessive with medicaid. Continues to perseverate on how medicaid will mess with his social security. This RN and social services specialist both explained several times to him that medicaid would help with his medical costs currently and in the future, as well as providing other benefits for him. Patient appeared to be choosing to ignore what anyone was saying to him and would begin talking in circles. This RN administered a zyprexa 10mg odt after the patient appeared agitated and began talking about how being here made him want to kill himself. Patient stated a good way to do it would be to tie a bungie cord several times around your neck. He asked how he would be able to get out of here. This RN told him staff just wanted to ensure that he would not pose a harm to himself or anyone else. Patient said he wouldn't hurt himself or anyone else, other than his dad. Patient stated he would skin his dad and throw knives at him. This RN asked why he would want to do this and he said because his dad knew about people being killed and didn't care and that he had stolen thousands of dollars from him. He also said that he used to be high up in a ring. When asked what kind of ring he answered, well..like..a sex trafficking one. Patient now wanting this RN to look up a coin he claims he has that is worth 5 million dollars.
--- NOTE | 2024-06-09 14:25 | W.PM.NPUPNS ---
Subjective NPU Subjective: 28-year-old male with schizoaffective disorder admitted with bizarre delusions and paranoia. The patient had reported that he did not wish to sign up for Medicaid stated that he wanted to go home despite then stating to a staff member that he wanted to skin his father. He had appeared to remain significantly confused often asking for medication to manage his anxiety. He had reported that he would be returning to the [facility] and would only be staying with his father briefly. He continues to struggle with completion of activities of daily living. He continued to appear times suspicious and preoccupied by various somatic complaints. Mental Status Exam MSE Comments: This is an underweight white male, in hospital scrubs, with poor grooming today, and less intense eye contact with disheveled appearance. No abnormal involuntary motor movements appreciated. He was more cooperative with exam in mild distress. Speech was productive with normal volume. Mood described as allright. His affect was odd and subdued today. Thought process was logical but derailed later during the interview. Thought content: patient denied any suicidal or homicidal ideation, there were continued bizarre ideas noted but less prominent and he did not appear to be responding to internal stimuli. The patient denied experiencing suicidal ideation but endorsed that he would skin my father. His attention, concentration, and memory appear poor. He is alert and oriented to person today. Insight was poor and judgment and impulse control are limited currently. Vitals/I&O/Wt Last Vital Signs Temp 98.3 F 06/09/24 12:00 Pulse 100 06/09/24 12:00 Resp 20 H 06/09/24 12:00 BP 134/84 06/09/24 12:00 Pulse Ox 97 06/09/24 12:00 O2 Del Method Room Air 06/09/24 04:00 Data NPU 06/03/24 07:56 06/03/24 07:56 A&P Assessment and plan (1) Psychosis: (2) History of schizoaffective disorder: (3) Cannabis use disorder: Plan This is a 28-year-old white male unknown to [facility] inpatient or outpatient who presents with kyara psychosis apparently off medication and a poor historian.The patient appears to have a complex psychiatric history with dissatisfaction towards previous treatments. He has reported an increase in anxiety and tobacco use, as well as concerns about declining cognitive abilities. There is also a history of substance use including cannabis and methamphetamines. 1.? Patient remains psychotic, will increase haldol to 4mg at night and abilify to 15mg daily. Monitor for EPS symptoms. Mirtazapine 15mg at night to target anxiety. 2.? Encourage individual, group, and milieu therapy. 3.? Continue q-15 minute checks for safety. 4.? Encourage sober living treatment, after discharge, at the highest level of care, to which he is willing to commit. 5. Get collateral information. 6. Patient on 21 day hold. Involuntary Hold Information 96 Hour Hold: 96 Hour Involuntary Admission: Yes 96 Hour Hold Ending Date: 05/26/24 96 Hour Hold Ending Time: 15:50 Attestations NPU Medical Necessity Statement*: Inpatient hospitalization is medically necessary and the clinically appropriate intervention, at this time. We will monitor medications and make changes as indicated. The patient's likely length of stay is 5-7 days. Coding Level of Care Code Acute Code for [facility] Fwd Diagnoses Psychosis F29 History of schizoaffective disorder Z86.59 Cannabis use disorder F12.90
[2024-06-09] MEDS: haloperidol 1 mg Tablet 4 MG PO (20:48)
[2024-06-09] MEDS: mirtazapine 15 mg Tablet PO (20:48)
[2024-06-09] MEDS: ARIPiprazole 10 mg Tablet 15 MG PO (20:48)
[2024-06-10 04:00] VITALS: BP 112/75; PULSE 87; RESP 16; O2SAT 97
[2024-06-10 07:59] VITALS: BP 123/84; PULSE 97; RESP 16; TEMP 37.2; O2SAT 99
[2024-06-10] MEDS: pantoprazole DR 40 mg Tablet PO (08:52)
[2024-06-10] MEDS: nicotine 2 mg Gum BUCCAL (11:25)
[2024-06-10 12:00] VITALS: BP 142/93; PULSE 96; RESP 16; TEMP 37.2; O2SAT 99
[2024-06-10 15:39] VITALS: BP 130/87; PULSE 101; RESP 16; TEMP 37.1; O2SAT 98
[2024-06-10] MEDS: polyethylene glycol 3350 Pkt 17 gm PO (15:44)
[2024-06-10] MEDS: CLONazepam 0.5 mg Tablet 0.25 MG PO (18:03)
--- NOTE | 2024-06-10 18:04 | W.PM.NPUPNS ---
Subjective NPU Subjective: 28-year-old male with schizoaffective disorder admitted with bizarre delusions and paranoia. The patient had continued to reiterate his plan to go to the [facility]. He had continued to be somewhat intrusive on the unit. He had reported having an extended period of homelessness in the past and stated that he had struggled with maintaining employment. He had reported that he had made a decision to be homeless at times as opposed to staying with family members. He had reported continued struggles with his desire to take medications stating that he would likely stop these medications upon discharge. He had reported improved sleep since the initiation and titration of Haldol. He continued to require some prompting for completion of activities of daily living. He stated that he was not feeling suicidal. He appeared less preoccupied by somatic complaints today. Mental Status Exam MSE Comments: This is an underweight white male, in hospital scrubs, with poor grooming today, and less intense eye contact with disheveled appearance. No abnormal involuntary motor movements appreciated. He was more cooperative with exam in mild distress. Speech was productive with normal volume. Mood described as okay. His affect was odd and subdued today. Thought process was logical with continued derailment noted. Thought content: patient denied any suicidal or homicidal ideation, there were continued bizarre ideas. The patient denied experiencing suicidal ideation or homicidal ideation. His attention, concentration, and memory appear poor. He is alert and oriented to person today. Insight was poor and judgment and impulse control are limited currently. Vitals/I&O/Wt Last Vital Signs Temp 98.8 F 06/10/24 15:39 Pulse 101 H 06/10/24 15:39 Resp 16 06/10/24 15:39 BP 130/87 06/10/24 15:39 Pulse Ox 98 06/10/24 15:39 O2 Del Method Room Air 06/10/24 15:39 Data NPU 06/03/24 07:56 06/03/24 07:56 A&P Assessment and plan (1) Psychosis: (2) History of schizoaffective disorder: (3) Cannabis use disorder: Plan This is a 28-year-old white male unknown to [facility] inpatient or outpatient who presents with kyara psychosis apparently off medication and a poor historian.The patient appears to have a complex psychiatric history with dissatisfaction towards previous treatments. He has reported an increase in anxiety and tobacco use, as well as concerns about declining cognitive abilities. There is also a history of substance use including cannabis and methamphetamines. 1.? Patient remains psychotic, will increase haldol to 5mg at night and continue abilify to 15mg daily. Monitor for EPS symptoms. Mirtazapine 30mg at night to target anxiety. 2.? Encourage individual, group, and milieu therapy. 3.? Continue q-15 minute checks for safety. 4.? Encourage sober living treatment, after discharge, at the highest level of care, to which he is willing to commit. 5. Get collateral information. 6. Patient on 21 day hold. Involuntary Hold Information 96 Hour Hold: 96 Hour Involuntary Admission: Yes 96 Hour Hold Ending Date: 05/26/24 96 Hour Hold Ending Time: 15:50 Attestations NPU Medical Necessity Statement*: Inpatient hospitalization is medically necessary and the clinically appropriate intervention, at this time. We will monitor medications and make changes as indicated. The patient's likely length of stay is 5-7 days. Coding Level of Care Code Acute Code for g Fwd Diagnoses Psychosis F29 History of schizoaffective disorder Z86.59 Cannabis use disorder F12.90
[2024-06-10 19:56] VITALS: BP 105/64; PULSE 91; RESP 16; TEMP 36.9; O2SAT 97
[2024-06-10] MEDS: haloperidol 5 mg Tablet PO (20:26)
[2024-06-10] MEDS: mirtazapine 30 mg Tablet PO (20:26)
[2024-06-10] MEDS: ARIPiprazole 10 mg Tablet 15 MG PO (20:27)
[2024-06-10 23:41] VITALS: RESP 16
[2024-06-11 04:00] VITALS: BP 111/75; PULSE 88; RESP 16; TEMP 36.7; O2SAT 98
[2024-06-11 07:45] VITALS: BP 109/76; PULSE 84; RESP 16; TEMP 36.7; O2SAT 99
[2024-06-11] MEDS: pantoprazole DR 40 mg Tablet PO (08:14)
[2024-06-11] MEDS: CLONazepam 0.5 mg Tablet 0.25 MG PO ×2 (08:14→17:34)
[2024-06-11] MEDS: acetaminophen 325 mg Tablet 650 MG PO (09:10)
[2024-06-11] MEDS: nicotine 4 mg lozenge MUCOUS MEM ×3 (09:13→18:11)
[2024-06-11 11:47] VITALS: BP 132/92; PULSE 113; RESP 16; TEMP 37.1; O2SAT 98
--- NOTE | 2024-06-11 14:03 | P.NPUPN_ITS ---
Subjective NPU 2 Subjective: 28-year-old male with schizoaffective di sorder admitted with bizarre delusions and paranoia. The patient had appeared to be sleeping better. He had reported that he still had plans to revisit the previous house that he had resided in where the neighbors had been engaged in some nefarious plans that he described as having killed people. He had questioned the validity of his beliefs somewhat today although he still acknowledged having assumed that someone was being harmed and stated that he had seen bodies being put into the ground. He had reported being frustrated with his father particularly regarding issues relating to when his grandfather had the father had failed to keep some of the family air looms and had been unwilling to listen to Augusto regarding his concerns about the neighbors behaviors. He continued to struggle with being unwilling to discuss the need for Medicaid. He had reported feeling less anxious with the initiation of Klonopin. He had reported no side effects at this time to Haldol. Mental Status Exam 2 MSE Comments: This is an underweight white male, in hospital scrubs, with poor grooming today, and improved eye contact with disheveled appearance. No abnormal involuntary motor movements appreciated. He was more cooperative with exam in mild distress. Speech was productive with normal volume. Mood described as okay. His affect remained odd and subdued today. Thought process was logical with no derailment appreciated today. Thought content: patient denied any suicidal or homicidal ideation, there were continued presence of delusions though less persistent. The patient denied experiencing suicidal ideation or homicidal ideation. His attention, concentration, and memory appeared better. He is alert and oriented to person today. Insight was poor and judgment and impulse control are limited currently. Vitals/I&O/Wt Last Vital Signs Temp 98.8 F 06/11/24 11:47 Pulse 113 H 06/11/24 11:47 Resp 16 06/11/24 11:47 BP 132/92 06/11/24 11:47 Pulse Ox 98 06/11/24 11:47 O2 Del Method Room Air 06/11/24 11:47 Data NPU 06/03/24 07:56 06/03/24 07:56 A&P Assessment and plan (1) Psychosis: (2) History of schizoaffective disorder: (3) Cannabis use disorder: Plan This is a 28-year-old white male unknown to [facility] inpatient or outpatient who presents with kyara psychosis apparently off medication and a poor historian.The patient appears to have a complex psychiatric history with dissatisfaction towards previous treatments. He has reported an increase in anxiety and tobacco use, as well as concerns about declining cognitive abilities. There is also a history of substance use including cannabis and methamphetamines. 1.? Patient remains psychotic but better with reduction in abilify 15mg daily and haldol 5mg daily. Consider haldol decanoate possibly. Monitor for EPS symptoms. Mirtazapine 30mg at night to target anxiety. Klonopin .25mg bid to target anxiety. 2.? Encourage individual, group, and milieu therapy. 3.? Continue q-15 minute checks for safety. 4.? Encourage sober living treatment, after discharge, at the highest level of care, to which he is willing to commit. 5. Get collateral information. 6. Patient on 21 day hold. Involuntary Hold Information 2 96 Hour Hold: 96 Hour Involuntary Admission: Yes 96 Hour Hold Ending Date: 05/26/24 96 Hour Hold Ending Time: 15:50 Attestations NPU 2 Medical Necessity Statement*: Inpatient hospitalization is medically necessary and the clinically appropriate intervention, at this time. We will monitor medications and make changes as indicated. The patient's likely length of stay is 5-7 days. Coding Level of Care Code Acute Code for g Fwd Diagnoses Psychosis F29 History of schizoaffective disorder Z86.59 Cannabis use disorder F12.90
[2024-06-11 16:00] VITALS: BP 128/83; PULSE 102; RESP 16; TEMP 37.2; O2SAT 98
[2024-06-11 19:41] VITALS: BP 147/84; PULSE 117; RESP 18; TEMP 36.4; O2SAT 98
[2024-06-11] MEDS: mirtazapine 30 mg Tablet PO (20:10)
[2024-06-11] MEDS: ARIPiprazole 10 mg Tablet 15 MG PO (20:10)
[2024-06-11] MEDS: haloperidol 5 mg Tablet PO (20:11)
[2024-06-11 23:07] VITALS: RESP 16
[2024-06-12 04:00] VITALS: BP 96/65; PULSE 83; RESP 16; TEMP 36.7; O2SAT 97
[2024-06-12 07:45] VITALS: BP 112/74; PULSE 91; RESP 18; TEMP 36.6; O2SAT 99
[2024-06-12] MEDS: CLONazepam 0.5 mg Tablet 0.25 MG PO ×2 (08:42→17:14)
[2024-06-12] MEDS: nicotine 2 mg Gum BUCCAL (08:42)
[2024-06-12] MEDS: pantoprazole DR 40 mg Tablet PO (08:42)
--- NOTE | 2024-06-12 08:42 | PC.NURSE ---
IN HALLWAY FOLLOWS THIS RN WHEN ATTEMPTING TO OTHERS ASSESSMENTS. PT REDIRECTED TO STOP AND GIVE ALL RESPECT AND PRIVACY. PT CONTINUES TO BE INTRUSIVE, SOMATIC AND IMPULSIVE. PT TRYS TO STAND AT THE NURSES STATION SO HE CAN LISTEN TO EVERYTHING THE NURSES AND STAFF ARE SAYING. PT HAS BEEN REDIRECTED AWAY FROM THE NURSES STATION UNLESS HE IS GETTING MEDICATIONS OR NEEDING SOMETHING. PT KEEPS REPEATING I'M BORED I',M BORED. RN GAVE SEVERAL SUGGESTIONS ON HOW HE COULD PASS TIME BUT PT WAS NO INTERESTED IN ANYTHING THIS RN HAD TO SAY. RATES DEPRESSION 0/10 AND RATES ANXIETY 3/10. SCHEDULED CLONAZEPAM WILL BE GIVEN WITH AM MEDICATIONS. DENIES PAIN. DENIES SI/HI AND AVH AT THIS TIME. PT REPORTS HE SLEPT GOOD BUT I HAVE TROUBLE GOING TO SLEEP. CARD GRINDER STAFF DID NOT REPORT THIS. PT STATES GOAL FOR THE DAY IS TO GO HOME. ALL QUESTIONS ANSWERED AND SUPPORT WAS VOICED.
[2024-06-12 12:00] VITALS: BP 136/72; PULSE 118; RESP 20; TEMP 36.6; O2SAT 99
--- NOTE | 2024-06-12 13:36 | P.NPUPN_ITS ---
Subjective NPU 2 Subjective: Patient presented today reporting that he was doing fine. He got on a tangent about going to the [facility] and told a story of going there 3 or 4 times and having a girlfriend there and things of that nature. We discussed the fact that he had not known that he had done such a thing and we discussed whether or not it was true which he reported that it was. He talked about going there after discharge and talked about how he would have access to his medication there. We really would talk to his father about this issue and that we would review the chart and evaluate him and see if discharge at the beginning of the week might be possible. He denied any side effects to medication. Mental Status Exam 2 MSE Comments: This is an underweight white male, in hospital scrubs, with limited grooming today, and improved eye contact with disheveled appearance. Notable rash on face and neck area no abnormal involuntary motor movements appreciated. He was more cooperative with exam in mild distress. Speech was productive with normal volume. Mood described as okay. His affect seemed less odd and subdued today. Thought process was linear with no derailment appreciated today. Thought content: patient denied any suicidal or homicidal ideation, there were continued presence of delusions though less persistent as he asked not to have to talk about certain issues. His attention, concentration, and memory appeared better. He is alert and oriented to person and place. Insight was poor and judgment and impulse control are limited currently. Vitals/I&O/Wt Last Vital Signs Temp 98 F 06/12/24 12:00 Pulse 118 H 06/12/24 12:00 Resp 20 H 06/12/24 12:00 BP 136/72 06/12/24 12:00 Pulse Ox 99 06/12/24 12:00 O2 Del Method Room Air 06/11/24 16:00 Data NPU 06/03/24 07:56 06/03/24 07:56 A&P Assessment and plan (1) Psychosis: (2) History of schizoaffective disorder: (3) Cannabis use disorder: Plan This is a 28-year-old white male unknown to [facility] inpatient or outpatient who presents with kyara psychosis apparently off medication and a poor historian.The patient appears to have a complex psychiatric history with dissatisfaction towards previous treatments. He has reported an increase in anxiety and tobacco use, as well as concerns about declining cognitive abilities. There is also a history of substance use including cannabis and methamphetamines. 1.? Patient remains psychotic but better with reduction in abilify 15mg daily and haldol 5mg daily. Consider haldol decanoate possibly. Monitor for EPS symptoms. Mirtazapine 30mg at night to target anxiety. Klonopin .25mg bid to target anxiety. 2.? Encourage individual, group, and milieu therapy. 3.? Continue q-15 minute checks for safety. 4.? Encourage sober living treatment, after discharge, at the highest level of care, to which he is willing to commit. 5. Get collateral information. 6. Patient on 21 day hold. May need to consider 90-day hold. Involuntary Hold Information 2 96 Hour Hold: 96 Hour Involuntary Admission: Yes 96 Hour Hold Ending Date: 05/26/24 96 Hour Hold Ending Time: 15:50 Attestations NPU 2 Medical Necessity Statement*: Inpatient hospitalization is medically necessary and the clinically appropriate intervention, at this time. We will monitor medications and make changes as indicated. The patient's likely length of stay is 5-7 days. Coding Level of Care Code Acute Code for g Fwd Diagnoses Psychosis F29 History of schizoaffective disorder Z86.59 Cannabis use disorder F12.90
[2024-06-12 13:47] VITALS: BP 125/86; PULSE 120; RESP 18; TEMP 37.5; O2SAT 98
[2024-06-12] MEDS: nicotine 4 mg lozenge MUCOUS MEM (15:06)
[2024-06-12 19:43] VITALS: BP 113/70; PULSE 111; RESP 18; TEMP 36.6; O2SAT 99
[2024-06-12] MEDS: ARIPiprazole 10 mg Tablet 15 MG PO (21:05)
[2024-06-12] MEDS: mirtazapine 30 mg Tablet PO (21:05)
[2024-06-12] MEDS: haloperidol 5 mg Tablet PO (21:06)
[2024-06-13 06:00] VITALS: BP 123/83; PULSE 97; RESP 18; TEMP 36.8; O2SAT 96
--- NOTE | 2024-06-13 07:22 | W.PM.NPUPNS ---
Subjective NPU Subjective: Patient presented today reporting that he is doing okay. He denied doing anything differently but his rash on his face and chest was much improved today. We discussed just keeping an eye out. Continue to endorse that his vision for the future is in the [facility] which we continue to discuss was very new and that was not something he ever brought up prior to be going off service this last time. We discussed making sure we can validate this as a reality but he is fixed on the idea that he has a significant other that he hopes to that there excetra. He denies any side effects of the medication. Mental Status Exam MSE Comments: This is an underweight white male, in hospital scrubs, with limited grooming today, and improved eye contact with disheveled appearance. Notable rash on face and neck area no abnormal involuntary motor movements appreciated. He was more cooperative with exam in mild distress. Speech was productive with normal volume. Mood described as okay. His affect seemed less odd and subdued today. Thought process was linear with no derailment appreciated today. Thought content: patient denied any suicidal or homicidal ideation, there were continued presence of delusions though less persistent as he asked not to have to talk about certain issues. His attention, concentration, and memory appeared better. He is alert and oriented to person and place. Insight was poor and judgment and impulse control are limited currently. Vitals/I&O/Wt Last Vital Signs Temp 98.3 F 06/13/24 06:00 Pulse 97 06/13/24 06:00 Resp 18 06/13/24 06:00 BP 123/83 06/13/24 06:00 Pulse Ox 96 06/13/24 06:00 O2 Del Method Room Air 06/13/24 06:00 Data NPU 06/03/24 07:56 06/03/24 07:56 A&P Assessment and plan (1) Psychosis: (2) History of schizoaffective disorder: (3) Cannabis use disorder: Plan This is a 28-year-old white male unknown to [facility] inpatient or outpatient who presents with kyara psychosis apparently off medication and a poor historian.The patient appears to have a complex psychiatric history with dissatisfaction towards previous treatments. He has reported an increase in anxiety and tobacco use, as well as concerns about declining cognitive abilities. There is also a history of substance use including cannabis and methamphetamines. 1.? Patient remains psychotic but better with reduction in abilify 15mg daily and haldol 5mg daily. Consider haldol decanoate possibly. Monitor for EPS symptoms. Mirtazapine 30mg at night to target anxiety. Klonopin .25mg bid to target anxiety. 2.? Encourage individual, group, and milieu therapy. 3.? Continue q-15 minute checks for safety. 4.? Encourage sober living treatment, after discharge, at the highest level of care, to which he is willing to commit. 5. Get collateral information. 6. Patient on 21 day hold. May need to consider 90-day hold. Involuntary Hold Information 96 Hour Hold: 96 Hour Involuntary Admission: Yes 96 Hour Hold Ending Date: 05/26/24 96 Hour Hold Ending Time: 15:50 Attestations NPU Medical Necessity Statement*: Inpatient hospitalization is medically necessary and the clinically appropriate intervention, at this time. We will monitor medications and make changes as indicated. The patient's likely length of stay is 5-7 days. Coding Level of Care Code Acute Code for [facility] Fwd Diagnoses Psychosis F29 History of schizoaffective disorder Z86.59 Cannabis use disorder F12.90
[2024-06-13] MEDS: CLONazepam 0.5 mg Tablet 0.25 MG PO ×2 (08:11→17:03)
[2024-06-13] MEDS: pantoprazole DR 40 mg Tablet PO (08:12)
[2024-06-13] MEDS: polyethylene glycol 3350 Pkt 17 gm PO (09:28)
[2024-06-13] MEDS: alum-mag-hydroxide-sime 30 mL UDC PO (09:28)
[2024-06-13] MEDS: nicotine 4 mg lozenge MUCOUS MEM ×3 (09:30→20:42)
[2024-06-13 14:00] VITALS: BP 129/82; PULSE 114; RESP 18; TEMP 37.3; O2SAT 98
[2024-06-13] MEDS: hyDROXYzine 25 mg Capsule 50 MG PO (18:45)
[2024-06-13] MEDS: neomycin-poly-bacitracin oint 28 gm 1 APPLIC TOPICAL (20:04)
[2024-06-13 20:19] VITALS: BP 134/82; PULSE 89; RESP 18; TEMP 37.1; O2SAT 97
[2024-06-13] MEDS: haloperidol 5 mg Tablet PO (20:41)
[2024-06-13] MEDS: ARIPiprazole 10 mg Tablet 15 MG PO (20:41)
[2024-06-13] MEDS: mirtazapine 30 mg Tablet PO (20:41)
[2024-06-14 06:00] VITALS: BP 105/71; PULSE 80; RESP 16; O2SAT 99
[2024-06-14] MEDS: CLONazepam 0.5 mg Tablet 0.25 MG PO ×2 (08:08→18:12)
[2024-06-14] MEDS: pantoprazole DR 40 mg Tablet PO (08:09)
--- NOTE | 2024-06-14 09:52 | P.NPUPN_ITS ---
Subjective NPU 2 Subjective: Patient presents reporting that he is doing okay today he is trying to be optimistic about the possibility of discharge versus continuation of his hold. He reports that his father is known to be supportive but continues to talk about going back to the [facility]. He reports that he is tolerating the medication without side effects he denies being overwhelmed about thoughts about people being killed in black magic like he was before. Mental Status Exam 2 MSE Comments: This is an underweight white male, in hospital scrubs, with limited grooming today, and improved eye contact with disheveled appearance. Notable rash on face and neck area no abnormal involuntary motor movements appreciated. He was more cooperative with exam in mild distress. Speech was productive with normal rate and volume. Mood described as okay. His affect seemed less odd and subdued today. Thought process was linear with no derailment appreciated today. Thought content: patient denied any suicidal or homicidal ideation, there were continued presence of delusions though less persistent as he asked not to have to talk about certain issues. His attention, concentration, and memory appeared better. He is alert and oriented to person and place. Insight was poor and judgment and impulse control are limited currently. Vitals/I&O/Wt Last Vital Signs Temp 98.8 F 06/13/24 20:19 Pulse 80 06/14/24 06:00 Resp 16 06/14/24 06:00 BP 105/71 06/14/24 06:00 Pulse Ox 99 06/14/24 06:00 O2 Del Method Room Air 06/14/24 06:00 Weight last 48 hrs Weight 64.524 kg Data NPU 06/03/24 07:56 06/03/24 07:56 A&P Assessment and plan (1) Psychosis: (2) History of schizoaffective disorder: (3) Cannabis use disorder: Plan This is a 28-year-old white male unknown to [facility] inpatient or outpatient who presents with kyara psychosis apparently off medication and a poor historian.The patient appears to have a complex psychiatric history with dissatisfaction towards previous treatments. He has reported an increase in anxiety and tobacco use, as well as concerns about declining cognitive abilities. There is also a history of substance use including cannabis and methamphetamines. 1.? Patient remains psychotic but better with reduction in abilify 15mg daily and haldol 5mg daily. Consider haldol decanoate possibly. Monitor for EPS symptoms. Mirtazapine 30mg at night to target anxiety. Klonopin .25mg bid to target anxiety. 2.? Encourage individual, group, and milieu therapy. 3.? Continue q-15 minute checks for safety. 4.? Encourage sober living treatment, after discharge, at the highest level of care, to which he is willing to commit. 5. Get collateral information. 6. Patient on 21 day hold. May need to consider 90-day hold. Involuntary Hold Information 2 96 Hour Hold: 96 Hour Involuntary Admission: Yes 96 Hour Hold Ending Date: 05/26/24 96 Hour Hold Ending Time: 15:50 Attestations NPU 2 Medical Necessity Statement*: Inpatient hospitalization is medically necessary and the clinically appropriate intervention, at this time. We will monitor medications and make changes as indicated. The patient's likely length of stay is 4-6 days. Coding Level of Care Code Acute Code for Chg Fwd Diagnoses Psychosis F29 History of schizoaffective disorder Z86.59 Cannabis use disorder F12.90
[2024-06-14] MEDS: nicotine 4 mg lozenge MUCOUS MEM ×2 (11:21→16:02)
[2024-06-14] MEDS: hyDROXYzine 25 mg Capsule 50 MG PO (12:15)
[2024-06-14] MEDS: nicotine 2 mg Gum BUCCAL (13:55)
[2024-06-14 14:00] VITALS: BP 121/86; PULSE 126; RESP 18; TEMP 36.4; O2SAT 99
[2024-06-14] MEDS: neomycin-poly-bacitracin oint 28 gm 1 APPLIC TOPICAL (16:02)
[2024-06-14] MEDS: trazodone 50 mg Tablet PO (20:12)
[2024-06-14] MEDS: mirtazapine 30 mg Tablet PO (20:13)
[2024-06-14] MEDS: haloperidol 5 mg Tablet PO (20:13)
[2024-06-14] MEDS: ARIPiprazole 10 mg Tablet 15 MG PO (20:13)
[2024-06-14 21:43] VITALS: BP 125/86; PULSE 107; RESP 18; TEMP 37.4; O2SAT 98
[2024-06-15 06:00] VITALS: BP 110/75; PULSE 110; RESP 17; TEMP 36.6; O2SAT 98
[2024-06-15] MEDS: CLONazepam 0.5 mg Tablet 0.25 MG PO ×2 (09:05→18:05)
[2024-06-15] MEDS: pantoprazole DR 40 mg Tablet PO (09:05)
[2024-06-15] MEDS: acetaminophen 325 mg Tablet 650 MG PO (10:22)
[2024-06-15] MEDS: nicotine 4 mg lozenge MUCOUS MEM (13:22)
[2024-06-15 14:00] VITALS: BP 132/86; PULSE 105; RESP 17; TEMP 36.6; O2SAT 97
[2024-06-15] MEDS: hyDROXYzine 25 mg Capsule 50 MG PO (15:02)
[2024-06-15 19:38] VITALS: BP 118/78; PULSE 119; RESP 18; TEMP 37.2; O2SAT 96
--- NOTE | 2024-06-15 20:06 | P.NPUPN_ITS ---
Subjective NPU 2 Subjective: Patient presented today reporting that he is doing fine. He continued to talk about plans for the [facility] and his trips there as if it were real. Reports from family that he was only there once. We discussed the importance of honest discussions so we could truly understand where things are with him. We discussed the possibility of discharge versus the 90-day hold. He denied any side effects to the medication. Mental Status Exam 2 MSE Comments: This is an underweight white male, in hospital scrubs, with limited grooming today, and improved eye contact with disheveled appearance. Notable rash on face and neck area no abnormal involuntary motor movements appreciated. He was more cooperative with exam in mild distress. Speech was productive with normal rate and volume. Mood described as okay. His affect seemed less odd and subdued today. Thought process was linear with no derailment appreciated today. Thought content: patient denied any suicidal or homicidal ideation, there were continued presence of delusions though less persistent as he asked not to have to talk about certain issues. His attention, concentration, and memory appeared better. He is alert and oriented to person and place. Insight was poor and judgment and impulse control are limited currently. Vitals/I&O/Wt Last Vital Signs Temp 99.0 F 06/15/24 19:38 Pulse 119 H 06/15/24 19:38 Resp 18 06/15/24 19:38 BP 118/78 06/15/24 19:38 Pulse Ox 96 06/15/24 19:38 O2 Del Method Room Air 06/15/24 06:00 06/15/24 06/15/24 06/15/24 06:59 14:59 22:59 Intake Total 480 / 480 Balance 480 / 480 Weight last 48 hrs Weight 64.524 kg Data NPU 06/03/24 07:56 06/03/24 07:56 A&P Assessment and plan (1) Psychosis: (2) History of schizoaffective disorder: (3) Cannabis use disorder: Plan This is a 28-year-old white male unknown to [facility] inpatient or outpatient who presents with kyara psychosis apparently off medication and a poor historian.The patient appears to have a complex psychiatric history with dissatisfaction towards previous treatments. He has reported an increase in anxiety and tobacco use, as well as concerns about declining cognitive abilities. There is also a history of substance use including cannabis and methamphetamines. 1.? Patient remains psychotic but better with reduction in abilify 15mg daily and haldol 5mg daily. Consider haldol decanoate possibly. Monitor for EPS symptoms. Mirtazapine 30mg at night to target anxiety. Klonopin .25mg bid to target anxiety. 2.? Encourage individual, group, and milieu therapy. 3.? Continue q-15 minute checks for safety. 4.? Encourage sober living treatment, after discharge, at the highest level of care, to which he is willing to commit. 5. Get collateral information. 6. Patient on 21 day hold. We will file for a 90-day hold as collateral information suggest that his talks about the [place] are more delusional content. Involuntary Hold Information 2 96 Hour Hold: 96 Hour Involuntary Admission: Yes 96 Hour Hold Ending Date: 05/26/24 96 Hour Hold Ending Time: 15:50 Attestations NPU 2 Medical Necessity Statement*: Inpatient hospitalization is medically necessary and the clinically appropriate intervention, at this time. We will monitor medications and make changes as indicated. The patient's likely length of stay is 4-6 days. Coding Level of Care Code Acute Code for g Fwd Diagnoses Psychosis F29 History of schizoaffective disorder Z86.59 Cannabis use disorder F12.90
[2024-06-15] MEDS: ARIPiprazole 10 mg Tablet 15 MG PO (20:10)
[2024-06-15] MEDS: mirtazapine 30 mg Tablet PO (20:10)
[2024-06-15] MEDS: haloperidol 5 mg Tablet PO (20:11)
[2024-06-16 06:00] VITALS: BP 125/79; PULSE 98; RESP 16; TEMP 36.7; O2SAT 99
[2024-06-16] MEDS: CLONazepam 0.5 mg Tablet 0.25 MG PO ×2 (08:40→17:54)
[2024-06-16] MEDS: nicotine 4 mg lozenge MUCOUS MEM (08:40)
[2024-06-16] MEDS: pantoprazole DR 40 mg Tablet PO (08:40)
--- NOTE | 2024-06-16 12:58 | W.PM.NPUPNS ---
Subjective NPU Subjective: Patient presented today reporting that things are doing fine. We discussed the need for him to remain in the hospital. We discussed concerns over delusional thinking and what the next move should be. We discussed submitting a 90-day hold paperwork to ensure that he stays but that we did not believe he was going to be here for much longer. We discussed his father's concerns for him to return home. He denied any side effects to the medication. Mental Status Exam MSE Comments: This is an underweight white male, in hospital scrubs, with limited grooming today, and improved eye contact with disheveled appearance. Notable rash on face and neck area no abnormal involuntary motor movements appreciated. He was more cooperative with exam in mild distress. Speech was productive with normal rate and volume. Mood described as okay. His affect seemed less odd and subdued today. Thought process was linear with no derailment appreciated today. Thought content: patient denied any suicidal or homicidal ideation, there were continued presence of delusions though less persistent as he asked not to have to talk about certain issues. His attention, concentration, and memory appeared better. He is alert and oriented to person and place. Insight was poor and judgment and impulse control are limited currently. Vitals/I&O/Wt Last Vital Signs Temp 98.1 F 06/16/24 06:00 Pulse 98 06/16/24 06:00 Resp 16 06/16/24 06:00 BP 125/79 06/16/24 06:00 Pulse Ox 99 06/16/24 06:00 O2 Del Method Room Air 06/15/24 06:00 06/15/24 06/16/24 06/16/24 22:59 06:59 14:59 Intake Total 480 / 480 Balance 480 / 480 Data NPU 06/03/24 07:56 06/03/24 07:56 A&P Assessment and plan (1) Psychosis: (2) History of schizoaffective disorder: (3) Cannabis use disorder: Plan This is a 28-year-old white male unknown to [facility] inpatient or outpatient who presents with kyara psychosis apparently off medication and a poor historian.The patient appears to have a complex psychiatric history with dissatisfaction towards previous treatments. He has reported an increase in anxiety and tobacco use, as well as concerns about declining cognitive abilities. There is also a history of substance use including cannabis and methamphetamines. 1.? Patient remains psychotic but better with reduction in abilify 15mg daily and haldol 5mg daily. Consider haldol decanoate possibly. Monitor for EPS symptoms. Mirtazapine 30mg at night to target anxiety. Klonopin .25mg bid to target anxiety. 2.? Encourage individual, group, and milieu therapy. 3.? Continue q-15 minute checks for safety. 4.? Encourage sober living treatment, after discharge, at the highest level of care, to which he is willing to commit. 5. Get collateral information. 6. Patient on 21 day hold. We submitted 90-day hold paperwork. Involuntary Hold Information 96 Hour Hold: 96 Hour Involuntary Admission: Yes 96 Hour Hold Ending Date: 05/26/24 96 Hour Hold Ending Time: 15:50 Attestations NPU Medical Necessity Statement*: Inpatient hospitalization is medically necessary and the clinically appropriate intervention, at this time. We will monitor medications and make changes as indicated. The patient's likely length of stay is 3-6 days. Coding Level of Care Code Acute Code for [facility] Fwd Diagnoses Psychosis F29 History of schizoaffective disorder Z86.59 Cannabis use disorder F12.90
[2024-06-16 14:00] VITALS: BP 123/85; PULSE 116; RESP 17; TEMP 36.6; O2SAT 99
[2024-06-16 17:47] VITALS: BMI 22.6
[2024-06-16 19:13] VITALS: BP 135/88; PULSE 100; RESP 18; TEMP 37.2; O2SAT 99
[2024-06-16] MEDS: mirtazapine 30 mg Tablet PO (20:02)
[2024-06-16] MEDS: ARIPiprazole 10 mg Tablet 15 MG PO (20:02)
[2024-06-16] MEDS: haloperidol 5 mg Tablet PO (20:02)
[2024-06-17 06:00] VITALS: BP 119/76; PULSE 93; RESP 16; TEMP 37.1; O2SAT 96
[2024-06-17] MEDS: CLONazepam 0.5 mg Tablet 0.25 MG PO ×2 (08:14→17:10)
[2024-06-17] MEDS: pantoprazole DR 40 mg Tablet PO (08:14)
[2024-06-17] MEDS: OLANZapine 5 mg ODT PO ×2 (13:08→17:54)
[2024-06-17] MEDS: hyDROXYzine 25 mg Capsule 50 MG PO (13:56)
[2024-06-17 14:00] VITALS: BP 134/88; PULSE 97; RESP 18; TEMP 36.3; O2SAT 99
[2024-06-17] MEDS: ibuprofen 600 mg Tablet PO (14:04)
--- NOTE | 2024-06-17 14:09 | P.NPUPN_ITS ---
Subjective NPU 2 Subjective: Patient presented today reporting that he is feeling better. Staff report of less delusional and his behavior which was noted on direct observation. Talked about his 90-day hold hearing tomorrow and talking to his father about whether or not he is seeming more appropriate for discharge. He denied any side effects to medication but was resistant to the idea of a long-acting injectable. Mental Status Exam 2 MSE Comments: This is an underweight white male, in hospital scrubs, with limited grooming today, and improved eye contact with disheveled appearance. Notable rash on face and neck area no abnormal involuntary motor movements appreciated. He was more cooperative with exam in mild distress. Speech was productive with normal rate and volume. Mood described as okay. His affect seemed less odd and subdued today. Thought process was linear with no derailment appreciated today. Thought content: patient denied any suicidal or homicidal ideation, there were continued presence of delusions though less persistent as he asked not to have to talk about certain issues. His attention, concentration, and memory appeared better. He is alert and oriented to person and place. Insight was poor and judgment and impulse control are limited currently. Vitals/I&O/Wt Last Vital Signs Temp 98.8 F 06/17/24 06:00 Pulse 93 06/17/24 06:00 Resp 16 06/17/24 06:00 BP 119/76 06/17/24 06:00 Pulse Ox 96 06/17/24 06:00 O2 Del Method Room Air 06/15/24 06:00 Weight last 48 hrs Weight 63.616 kg Data NPU 06/03/24 07:56 06/03/24 07:56 A&P Assessment and plan (1) Psychosis: (2) History of schizoaffective disorder: (3) Cannabis use disorder: Plan This is a 28-year-old white male unknown to [facility] inpatient or outpatient who presents with kyara psychosis apparently off medication and a poor historian.The patient appears to have a complex psychiatric history with dissatisfaction towards previous treatments. He has reported an increase in anxiety and tobacco use, as well as concerns about declining cognitive abilities. There is also a history of substance use including cannabis and methamphetamines. 1.? Patient remains psychotic but better with reduction in abilify 15mg daily and haldol 5mg daily. Consider haldol decanoate possibly. Monitor for EPS symptoms. Mirtazapine 30mg at night to target anxiety. Klonopin .25mg bid to target anxiety. 2.? Encourage individual, group, and milieu therapy. 3.? Continue q-15 minute checks for safety. 4.? Encourage sober living treatment, after discharge, at the highest level of care, to which he is willing to commit. 5. Get collateral information. 6. Patient on 21 day hold. We submitted 90-day hold paperwork. Will talk to father about his improvement and whether we need to continue with 90-day hold. Hearing at 1315 tomorrow. Involuntary Hold Information 2 96 Hour Hold: 96 Hour Involuntary Admission: Yes 96 Hour Hold Ending Date: 05/26/24 96 Hour Hold Ending Time: 15:50 Attestations NPU 2 Medical Necessity Statement*: Inpatient hospitalization is medically necessary and the clinically appropriate intervention, at this time. We will monitor medications and make changes as indicated. The patient's likely length of stay is 2-5 days. Coding Level of Care Code Acute Code for [facility] Fwd Diagnoses Psychosis F29 History of schizoaffective disorder Z86.59 Cannabis use disorder F12.90
[2024-06-17] MEDS: nicotine 2 mg Gum BUCCAL ×2 (17:10→20:43)
[2024-06-17 20:32] VITALS: BP 136/89; PULSE 119; RESP 16; TEMP 36.8; O2SAT 95
[2024-06-17] MEDS: haloperidol 5 mg Tablet PO (20:43)
[2024-06-17] MEDS: ARIPiprazole 10 mg Tablet 15 MG PO (20:43)
[2024-06-17] MEDS: mirtazapine 30 mg Tablet PO (20:44)
[2024-06-18 06:00] VITALS: BP 97/66; PULSE 98; RESP 16; TEMP 36.8; O2SAT 98
[2024-06-18] MEDS: pantoprazole DR 40 mg Tablet PO (08:40)
[2024-06-18] MEDS: CLONazepam 0.5 mg Tablet 0.25 MG PO ×2 (08:40→17:58)
--- NOTE | 2024-06-18 09:02 | PC.NURSE ---
ON PHONE THROUGH OUT THE MORNING CUSSING, YELLING AND SCREAMING AT DAD. PT CONTINUES TO BE INTRUSIVE, IMPULSIVE AND IRRITABLE. PT COMES TO NURSES STATION MAKING SEVERAL NON SPECIFIC REQUESTS THAT ARE SOMATIC IN NATURE. PT IS REQUESTING HE BE PLACED ON SOMETHING TO INCREASE MY APPETITE. PT WAS EDUCATED THAT HE HAS BEEN OBSERVED EATING 4 DINNER TRAYS IN ONE SITTING AND IT APPEARS HIS APPETITE IS GOOD. PT CONTINUES TO ATTEMPT TO ARGUE WITH STAFF. PT WAS REDIRECTED AWAY FROM THE DESK. PT THEN GOT ON THE PHONE AGAIN YELLING, CUSSING AND SCREAMING AT DAD. DENIES PAIN. DENIES SI/HI AND AVH AT THIS TIME. RATES ANXIETY AND DEPRESSION 01/14. PT GOAL FOR THE DAY IS TO LEAVE BUT I GUESS I CAN'T DO THAT EITHER. ALL QUESTIONS ANSWERED AND SUPPORT WAS VOICED.
[2024-06-18] MEDS: nicotine 2 mg Gum BUCCAL ×2 (09:22→17:58)
[2024-06-18] MEDS: ARIPiprazole Maintena 400 MG IM (12:59)
[2024-06-18] MEDS: OLANZapine 5 mg ODT PO ×2 (13:26→20:07)
[2024-06-18 14:00] VITALS: BP 92/44; PULSE 128; RESP 18; TEMP 37.2; O2SAT 96
--- NOTE | 2024-06-18 14:17 | P.NPUPN_ITS ---
Subjective NPU 2 Subjective: Patient presented today relating that he is doing okay. We had a lengthy conversation negotiating his discharge and medications. He agreed to take the long-acting injectable as a sign of the face. We discussed the likelihood of discharge for the end of next week. We agreed we would try to shoot for the beginning of the week we gave him some goals to achieve to get to that appointment. We discussed the risks, benefits and alternatives of initiating Invega Maintena and he understood and agreed to proceed as is documented in this note. He denied any side effects to the medication but he also continues to have significant reticence about taking medications. Mental Status Exam 2 MSE Comments: This is an underweight white male, in hospital scrubs, with limited grooming today, and improved eye contact with disheveled appearance. No abnormal involuntary motor movements appreciated. He was more cooperative with exam in mild distress. Speech was productive with normal rate and volume. Mood described as okay. His affect seemed less odd and subdued today. Thought process was linear with no derailment appreciated today. Thought content: patient denied any suicidal or homicidal ideation, there were continued presence of delusions though less persistent as he asked not to have to talk about certain issues. His attention, concentration, and memory appeared better. He is alert and oriented to person and place. Insight was poor and judgment and impulse control are limited currently. Vitals/I&O/Wt Last Vital Signs Temp 99.3 F 06/18/24 20:35 Pulse 130 H 06/18/24 19:43 Resp 19 H 06/18/24 19:43 BP 137/95 06/18/24 19:43 Pulse Ox 99 06/18/24 19:43 O2 Del Method Room Air 06/15/24 06:00 Data NPU 06/03/24 07:56 06/03/24 07:56 A&P Assessment and plan (1) Psychosis: (2) History of schizoaffective disorder: (3) Cannabis use disorder: Plan This is a 28-year-old white male unknown to [facility] inpatient or outpatient who presents with kyara psychosis apparently off medication and a poor historian.The patient appears to have a complex psychiatric history with dissatisfaction towards previous treatments. He has reported an increase in anxiety and tobacco use, as well as concerns about declining cognitive abilities. There is also a history of substance use including cannabis and methamphetamines. 1.? Patient remains psychotic but better with reduction in abilify 15mg daily and haldol 5mg daily. Start Abilify Maintena 400 mg IM q. monthly. Monitor for EPS symptoms. Mirtazapine 30mg at night to target anxiety. Klonopin .25mg bid to target anxiety. 2.? Encourage individual, group, and milieu therapy. 3.? Continue q-15 minute checks for safety. 4.? Encourage sober living treatment, after discharge, at the highest level of care, to which he is willing to commit. 5. Get collateral information. 6. Patient on 21 day hold. We submitted 90-day hold paperwork. Will talk to father about his improvement and whether we need to continue with 90-day hold. 21-day hold hearing canceled. Patient agreed to stay for several more days to get the injection and ensure he is stable. Involuntary Hold Information 2 96 Hour Hold: 96 Hour Involuntary Admission: Yes 96 Hour Hold Ending Date: 05/26/24 96 Hour Hold Ending Time: 15:50 Attestations NPU 2 Medical Necessity Statement*: Inpatient hospitalization is medically necessary and the clinically appropriate intervention, at this time. We will monitor medications and make changes as indicated. The patient's likely length of stay is 1-4 days. Coding Level of Care Code Acute Code for [facility] Fwd Diagnoses Psychosis F29 History of schizoaffective disorder Z86.59 Cannabis use disorder F12.90
[2024-06-18 19:43] VITALS: BP 137/95; PULSE 130; RESP 19; TEMP 37.9; O2SAT 99
[2024-06-18] MEDS: mirtazapine 30 mg Tablet PO (20:02)
[2024-06-18] MEDS: haloperidol 5 mg Tablet PO (20:02)
[2024-06-18] MEDS: ARIPiprazole 10 mg Tablet 15 MG PO (20:02)
[2024-06-18 20:35] VITALS: TEMP 37.4
[2024-06-18 22:45] VITALS: O2SAT 99
[2024-06-19 06:00] VITALS: BP 107/70; PULSE 90; RESP 17; TEMP 36.4; O2SAT 97
[2024-06-19] MEDS: CLONazepam 0.5 mg Tablet 0.25 MG PO ×2 (08:14→17:59)
[2024-06-19] MEDS: pantoprazole DR 40 mg Tablet PO (08:14)
[2024-06-19] MEDS: nicotine 2 mg Gum BUCCAL (10:59)
[2024-06-19] MEDS: OLANZapine 5 mg ODT PO ×2 (12:48→20:31)
[2024-06-19 14:00] VITALS: BP 151/96; PULSE 67; RESP 16; TEMP 36.5; O2SAT 98
--- NOTE | 2024-06-19 16:50 | P.NPUPN_ITS ---
Subjective NPU 2 Subjective: Patient presented today reporting that he is feeling fine. He denied any section of the initiation of the Abilify Maintena. He was able to continue having conversations with his father with less irritability and aggression. However staff reports continued psychosis and delusional content at baseline which was also noted on direct observation. He denied any side effects of medication and continued to be quite focused on discharge. Mental Status Exam 2 MSE Comments: This is an underweight white male, in hospital scrubs, with limited grooming today, and improved eye contact with disheveled appearance. No abnormal involuntary motor movements appreciated. He was more cooperative with exam in mild distress. Speech was productive with normal rate and volume. Mood described as okay. His affect seemed less odd and subdued today. Thought process was linear with no derailment appreciated today. Thought content: patient denied any suicidal or homicidal ideation, there were continued presence of delusions though less persistent as he asked not to have to talk about certain issues. His attention, concentration, and memory appeared better. He is alert and oriented to person and place. Insight was poor and judgment and impulse control are limited currently. Vitals/I&O/Wt Last Vital Signs Temp 97.7 F 06/19/24 14:00 Pulse 67 06/19/24 14:00 Resp 16 06/19/24 14:00 BP 151/96 06/19/24 14:00 Pulse Ox 98 06/19/24 14:00 O2 Del Method Room Air 06/19/24 14:00 Data NPU 06/03/24 07:56 06/03/24 07:56 A&P Assessment and plan (1) Psychosis: (2) History of schizoaffective disorder: (3) Cannabis use disorder: Plan This is a 28-year-old white male unknown to [facility] inpatient or outpatient who presents with kyara psychosis apparently off medication and a poor historian.The patient appears to have a complex psychiatric history with dissatisfaction towards previous treatments. He has reported an increase in anxiety and tobacco use, as well as concerns about declining cognitive abilities. There is also a history of substance use including cannabis and methamphetamines. 1.? Patient remains psychotic but better with reduction in abilify 15mg daily and haldol 5mg daily. Start Abilify Maintena 400 mg IM q. monthly. Monitor for EPS symptoms. Mirtazapine 30mg at night to target anxiety. Klonopin .25mg bid to target anxiety. 2.? Encourage individual, group, and milieu therapy. 3.? Continue q-15 minute checks for safety. 4.? Encourage sober living treatment, after discharge, at the highest level of care, to which he is willing to commit. 5. Get collateral information. 6. Patient on 21 day hold. We submitted 90-day hold paperwork. Will talk to father about his improvement and whether we need to continue with 90-day hold. 21-day hold hearing canceled. Patient agreed to stay for several more days to get the injection and ensure he is stable. Involuntary Hold Information 2 96 Hour Hold: 96 Hour Involuntary Admission: Yes 96 Hour Hold Ending Date: 05/26/24 96 Hour Hold Ending Time: 15:50 Attestations NPU 2 Medical Necessity Statement*: Inpatient hospitalization is medically necessary and the clinically appropriate intervention, at this time. We will monitor medications and make changes as indicated. The patient's likely length of stay is 2-4 days. Coding Level of Care Code Acute Code for [facility] Fwd Diagnoses Psychosis F29 History of schizoaffective disorder Z86.59 Cannabis use disorder F12.90
--- NOTE | 2024-06-19 18:36 | PC.NURSE ---
pt talking about going to [facility] an that [place] is his family because they go to [place] as a family and here in [place] we really don't do that anymore. and in the [facility] is where my girl is and gods son is and that is where i am going to be staying with. pt states his father needs to be here in the psych unit instead of him or with him that he triggers him and yells at him first every time he talks with him. 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 pt states that he was staying in his father house in his living room an would stay up watching TV until he fell asleep then his father would wake him up in the afternoon yelling and the pt then stated that he (the patient) would put stuff on the balcony and he would count to three and if his dad did not do it by the count of three he would shove it off the balcony unlike his dad who would just break all of his stuff. that his father was a work alcoholic either he saw the back of his head or his belt. then pt started talking about how everyone would be bionic in five years. pt then started talking about his grandfather from [facility] and all the murders were there and that he had called the police there himself.
[2024-06-19] MEDS: ARIPiprazole 10 mg Tablet 15 MG PO (20:26)
[2024-06-19] MEDS: haloperidol 5 mg Tablet PO (20:26)
[2024-06-19 20:27] VITALS: BP 133/96; PULSE 113; RESP 17; TEMP 37.1; O2SAT 98
[2024-06-19] MEDS: mirtazapine 30 mg Tablet PO (20:27)
[2024-06-19] MEDS: hyDROXYzine 25 mg Capsule 50 MG PO (20:31)
[2024-06-19] MEDS: trazodone 50 mg Tablet PO (21:04)
[2024-06-20 06:00] VITALS: BP 109/79; PULSE 100; RESP 16; TEMP 36.7; O2SAT 97
[2024-06-20] MEDS: CLONazepam 0.5 mg Tablet 0.25 MG PO ×2 (08:12→17:41)
[2024-06-20] MEDS: pantoprazole DR 40 mg Tablet PO (08:12)
[2024-06-20 14:00] VITALS: BP 120/68; PULSE 117; RESP 17; TEMP 36.9; O2SAT 98
[2024-06-20] MEDS: nicotine 2 mg Gum BUCCAL (15:35)
--- NOTE | 2024-06-20 18:35 | P.NPUPN_ITS ---
Subjective NPU 2 Subjective: Patient presented today reporting that he is doing fine. He continues to be focused on discharge and also neck and happen. Staff report continued delusional thinking and psychosis which is also seen on direct observation. He is holding up his end of the bargain however being more respectful on his phone calls and not having agitation. We continue to discuss the likelihood of discharge by Saturday and he denied any side effects to the medication including the injection. Mental Status Exam 2 MSE Comments: This is an underweight white male, in hospital scrubs, with limited grooming today, and improved eye contact with disheveled appearance. No abnormal involuntary motor movements appreciated. He was more cooperative with exam in mild distress. Speech was productive with normal rate and volume. Mood described as okay. His affect seemed less odd and subdued today. Thought process was linear with no derailment appreciated today. Thought content: patient denied any suicidal or homicidal ideation, there were continued presence of delusions though less persistent as he asked not to have to talk about certain issues. His attention, concentration, and memory appeared better. He is alert and oriented to person and place. Insight was poor and judgment and impulse control are limited currently. Vitals/I&O/Wt Last Vital Signs Temp 99.1 F 06/20/24 19:29 Pulse 113 H 06/20/24 19:29 Resp 18 06/20/24 19:29 BP 128/69 06/20/24 19:29 Pulse Ox 98 06/20/24 19:29 O2 Del Method Room Air 06/20/24 19:29 Weight last 48 hrs Weight 65.317 kg Data NPU 06/03/24 07:56 06/03/24 07:56 A&P Assessment and plan (1) Psychosis: (2) History of schizoaffective disorder: (3) Cannabis use disorder: Plan This is a 28-year-old white male unknown to [facility] inpatient or outpatient who presents with kyara psychosis apparently off medication and a poor historian.The patient appears to have a complex psychiatric history with dissatisfaction towards previous treatments. He has reported an increase in anxiety and tobacco use, as well as concerns about declining cognitive abilities. There is also a history of substance use including cannabis and methamphetamines. 1.? Patient remains psychotic but better with reduction in abilify 15mg daily and haldol 5mg daily. Start Abilify Maintena 400 mg IM q. monthly. Monitor for EPS symptoms. Mirtazapine 30mg at night to target anxiety. Klonopin .25mg bid to target anxiety. 2.? Encourage individual, group, and milieu therapy. 3.? Continue q-15 minute checks for safety. 4.? Encourage sober living treatment, after discharge, at the highest level of care, to which he is willing to commit. 5. Get collateral information. 6. Patient on 21 day hold. We submitted 90-day hold paperwork. Will talk to father about his improvement and whether we need to continue with 90-day hold. 21-day hold hearing canceled. Patient agreed to stay for several more days to get the injection and ensure he is stable. Involuntary Hold Information 2 96 Hour Hold: 96 Hour Involuntary Admission: Yes 96 Hour Hold Ending Date: 05/26/24 96 Hour Hold Ending Time: 15:50 Attestations NPU 2 Medical Necessity Statement*: Inpatient hospitalization is medically necessary and the clinically appropriate intervention, at this time. We will monitor medications and make changes as indicated. The patient's likely length of stay is 2-4 days. Coding Level of Care Code Acute Code for [facility] Fwd Diagnoses Psychosis F29 History of schizoaffective disorder Z86.59 Cannabis use disorder F12.90
[2024-06-20 19:29] VITALS: BP 128/69; PULSE 113; RESP 18; TEMP 37.3; O2SAT 98
[2024-06-20] MEDS: nicotine 4 mg lozenge MUCOUS MEM (19:33)
[2024-06-20] MEDS: ARIPiprazole 10 mg Tablet 15 MG PO (20:36)
[2024-06-20] MEDS: mirtazapine 30 mg Tablet PO (20:36)
[2024-06-20] MEDS: haloperidol 5 mg Tablet PO (20:36)
[2024-06-20] MEDS: OLANZapine 5 mg ODT PO (20:36)
[2024-06-20] MEDS: trazodone 50 mg Tablet PO (20:36)
[2024-06-21 06:00] VITALS: BP 104/64; PULSE 106; RESP 18; TEMP 36.9; O2SAT 98; BMI 23.2
[2024-06-21] MEDS: pantoprazole DR 40 mg Tablet PO (08:05)
[2024-06-21] MEDS: CLONazepam 0.5 mg Tablet 0.25 MG PO ×2 (08:06→17:22)
[2024-06-21 14:00] VITALS: BP 113/69; PULSE 113; RESP 18; TEMP 37.2; O2SAT 97
--- NOTE | 2024-06-21 19:04 | P.NPUPN_ITS ---
Subjective NPU 2 Subjective: Patient presented today reporting that he is doing well. He discussed the importance of managing his relationship with his father. He was less distracted by the [place] and some of his issues he finds challenging. We continue to discuss the likelihood of discharge by Saturday and still the possibility of discharge tomorrow. He denied any side effects to the medication. Mental Status Exam 2 MSE Comments: This is an underweight white male, in hospital scrubs, with adequate grooming and eye contact. No abnormal involuntary motor movements appreciated. He was more cooperative with exam in mild distress. Speech was productive with normal rate and volume. Mood described as okay. His affect congruent and less. Thought process was linear. Thought content: patient denied any suicidal or homicidal ideation, there were no delusions reported but continued presence of delusions though less persistent. His attention, concentration, and memory appeared better. He is alert and oriented to person and place. Insight was poor and judgment and impulse control are limited and improving. Vitals/I&O/Wt Last Vital Signs Temp 99 F 06/21/24 14:00 Pulse 113 H 06/21/24 14:00 Resp 18 06/21/24 14:00 BP 113/69 06/21/24 14:00 Pulse Ox 97 06/21/24 14:00 O2 Del Method Room Air 06/21/24 06:00 06/21/24 06/21/24 06/21/24 06:59 14:59 22:59 Intake Total 1200 / 1200 Balance 1200 / 1200 Weight last 48 hrs Weight 65.317 kg Data NPU 06/03/24 07:56 06/03/24 07:56 A&P Assessment and plan (1) Psychosis: (2) History of schizoaffective disorder: (3) Cannabis use disorder: Plan This is a 28-year-old white male unknown to [facility] inpatient or outpatient who presents with kyara psychosis apparently off medication and a poor historian.The patient appears to have a complex psychiatric history with dissatisfaction towards previous treatments. He has reported an increase in anxiety and tobacco use, as well as concerns about declining cognitive abilities. There is also a history of substance use including cannabis and methamphetamines. 1.? Patient remains psychotic but better with reduction in abilify 15mg daily and haldol 5mg daily. Start Abilify Maintena 400 mg IM q. monthly. Monitor for EPS symptoms. Mirtazapine 30mg at night to target anxiety. Klonopin .25mg bid to target anxiety. 2.? Encourage individual, group, and milieu therapy. 3.? Continue q-15 minute checks for safety. 4.? Encourage sober living treatment, after discharge, at the highest level of care, to which he is willing to commit. 5. Get collateral information. 6. Patient on 21 day hold. We submitted 90-day hold paperwork. Will talk to father about his improvement and whether we need to continue with 90-day hold. 21-day hold hearing canceled. Patient agreed to stay for several more days to get the injection and ensure he is stable. Involuntary Hold Information 2 96 Hour Hold: 96 Hour Involuntary Admission: Yes 96 Hour Hold Ending Date: 05/26/24 96 Hour Hold Ending Time: 15:50 Attestations NPU 2 Medical Necessity Statement*: Inpatient hospitalization is medically necessary and the clinically appropriate intervention, at this time. We will monitor medications and make changes as indicated. The patient's likely length of stay is 1-3 days. Coding Level of Care Code Acute Code for [facility] Fwd Diagnoses Psychosis F29 History of schizoaffective disorder Z86.59 Cannabis use disorder F12.90
[2024-06-21] MEDS: mirtazapine 30 mg Tablet PO (20:11)
[2024-06-21] MEDS: ARIPiprazole 10 mg Tablet 15 MG PO (20:11)
[2024-06-21] MEDS: trazodone 50 mg Tablet PO (20:11)
[2024-06-21] MEDS: haloperidol 5 mg Tablet PO (20:12)
[2024-06-21 21:44] VITALS: BP 102/68; PULSE 106; RESP 20; TEMP 37.6; O2SAT 98
[2024-06-22 06:00] VITALS: BP 99/65; PULSE 97; RESP 17; TEMP 37.1; O2SAT 97
[2024-06-22] MEDS: pantoprazole DR 40 mg Tablet PO (10:11)
[2024-06-22] MEDS: nicotine 2 mg Gum BUCCAL (10:11)
[2024-06-22] MEDS: CLONazepam 0.5 mg Tablet 0.25 MG PO ×2 (10:11→17:19)
[2024-06-22 13:59] VITALS: BP 129/87; PULSE 101; RESP 16; TEMP 37.6; O2SAT 99
[2024-06-22] MEDS: nicotine 4 mg lozenge MUCOUS MEM ×2 (14:00→16:43)
[2024-06-22] MEDS: docusate sodium 100 mg Capsule PO (14:00)
[2024-06-22] MEDS: acetaminophen 325 mg Tablet 650 MG PO (14:47)
[2024-06-22 15:44] VITALS: BP 129/87; PULSE 101; RESP 16; TEMP 37.6; O2SAT 99
[2024-06-22] MEDS: hyDROXYzine 25 mg Capsule 50 MG PO (16:13)
== END 2024-06-22 17:30 | disposition home or self-care (01) | DRG 885 ==
LOC: NP 05-28 09:29 → MEDSURG 05-29 14:30 → NP 05-29 19:13
PROVIDERS: Student in an Organized Health Care Education/Training Program; Admitting Provider Psychiatry & Neurology Psychiatry; Visit Provider Psychiatry & Neurology Psychiatry
DX: F25.9 Schizoaffective disorder, unspecified (principal); U07.1 COVID-19; F17.210 Nicotine dependence, cigarettes, uncomplicated; F10.90 Alcohol use, unspecified, uncomplicated; F12.90 Cannabis use, unspecified, uncomplicated; J45.909 Unspecified asthma, uncomplicated; R09.02 Hypoxemia
CPT/HCPCS: 36415; 71045; 80053; 81003; 81015; 82607; 82746; 83036; 83540; 83550; 83735; 84145; 84443; 85025; 85378; 86140; 86403; 87081; 87449; 87635; 87641; 87804; 87880; 94664; 96372; 97150; 97165; J0248; J8540